=== PATIENT | female | born 1965 | race Caucasian/White ===

== ENCOUNTER 2022-09-02 14:46 | Outpatient (REF) | payer OTHER, SELFPAY ==
[2022-09-02 15:05] LABS: MANUAL DIFF FLAG NO
[2022-09-02 15:25] LABS: Basophils Absolute Auto 0.1 X10*3/uL (0.0-0.2); Basophils Percent Auto 1.4 % (0-2); Eosinophils Absolute Auto 0.1 X10*3/uL (0.0-0.4); Eosinophils Percent Auto 2.4 % (0-4); Hematocrit 39.7 % (37.0-47.0); Hemoglobin 13.5 g/dl (12.0-16.0); Imm Gran Abs Auto 0.01 X10*3/uL (0.00-0.03); Imm Gran Pct Auto 0.2 % (0.0-0.4); Lymphocytes Absolute Auto 1.2 X10*3/uL (1.2-4.9); Lymphocytes Percent Auto 21.4 % (20-40); Mean Corpuscular Hemoglobin 31.2 pg (27.0-33.0); Mean Corpuscular Volume 91.7 fL (80.0-98.0); Mean Platelet Volume 11.3 fL (9.4-12.3); Monocytes Absolute Auto 0.7 X10*3/uL (0.1-1.2); Neutrophils Absolute Auto 3.4 x10*3/uL (2.0-8.3); Neutrophils Percent Auto 61.6 % (45-73); Platelet Count 196 X10*3/uL (160-400); Red Blood Count 4.33 X10*6/uL (4.20-5.50); Red Cell Distribution Width 12.4 % (11.0-16.0); White Blood Count 5.5 X10*3/uL (4.8-10.8)
[2022-09-02 15:52] LABS: Alanine Aminotransferase 13 U/L (0-31); Albumin Level 4.2 g/dL (3.5-5.0); Alkaline Phosphatase 55 U/L (39-117); Anion Gap 13 (12-20); Aspartate Amino Transferase 13 U/L (5-31); Bilirubin Direct < 0.2 mg/dL (0.0-0.5); Bilirubin Total 0.5 mg/dL (0.0-1.0); Blood Urea Nitrogen 16 mg/dL (9-16); Calcium 9.3 mg/dL (8.4-10.2); Carbon Dioxide 24 mmol/L (22-29); Chloride 110 mmol/L (96-108); Cholesterol 227 mg/dL; Estimated Glomerular Filt Rate > 60; Glucose Random 92 mg/dL (60-115); HDL Cholesterol 71 mg/dL; LDL Cholesterol Calculated 143 mg/dl; Potassium 4.2 mmol/L (3.3-5.1); Sodium 143 mmol/L (135-145); Total Protein 6.7 g/dL (6.5-8.0); Triglycerides 66 mg/dL
[2022-09-04 07:43] LABS: LDL Cholesterol Direct 130 mg/dL (<100)
[2022-09-04 08:38] LABS: HBS Num1 26.24 mIU/mL (0-7.99); HBc Num1 0.21 S/CO (0.00-0.79); HBsAGNum1 0.38 S/CO (0.00-0.99); Hepatitis B Core Antibody Nonreactive (Nonreactive); Hepatitis B Surface Antigen Negative (Negative); ~Hepatitis B Surface Antibody REACTIVE (Nonreactive); ~Hepatitis C Antibody Nonreactive (Nonreactive)
[2022-09-04 23:29] LABS: TS Negative Control Passed; TS Panel A 0; TS Panel B 0; TS Positive Control Passed; TSpotTB Negative (Negative)
== END 2022-09-02 14:47 | disposition home or self-care (01) ==
LOC: HO.LAB 14:46
PROVIDERS: PCP Internal Medicine; Visit Provider Physician Assistant
DX: L40.0 Psoriasis vulgaris (principal)
CPT/HCPCS: 36415; 80048; 80061; 80076; 83721; 85025; 86481; 86704; 86706; 86803; 87340

== ENCOUNTER 2022-10-24 07:51 | Inpatient (IN) | payer OTHER, SELFPAY ==
[2022-10-24] VITALS (10 sets, daily range): BP systolic 109–153; BP diastolic 65–86; PULSE 77–124; RESP 16–24; TEMP 36.2–37.4; O2SAT 92–99; BMI 23.6
--- NOTE | ~2022-10-24 | CT_ITS ---
EXAMINATION: CT ABDOMEN AND PELVIS WITH CONTRAST CLINICAL INFORMATION: Right lower quadrant pain. Evaluate for acute appendicitis. COMPARISON: None available. TECHNIQUE: Multidetector volumetric images were obtained from the superior aspect of the liver through the pubic symphysis following administration 85 mL of Omnipaque 350 intravenous contrast. Sagittal and coronal reformatted images were obtained on the technologist's workstation. Oral contrast: No This CT examination was performed using dose optimization techniques as appropriate, variously including the following: *Automated exposure control *Adjustment of mA and/or kV according to patient size (this includes techniques or standardized protocols for targeted exams where dose is matched to indication/reason for exam; i.e. extremities or head) *Use of iterative reconstruction technique DLP: 536 mGy-cm FINDINGS: LUNG BASES: The visualized lung bases are unremarkable. LIVER, GALLBLADDER, AND BILIARY TREE: The liver is normal in size, shape, and attenuation. There are at least 2 tiny subcentimeter hepatic hypodensities, too small to characterize. No additional, enhancing focal hepatic lesion or biliary ductal dilatation is present. Prominent gallbladder distention with circumferential wall thickening and adjacent fat stranding, consistent with acute cholecystitis. There is a slightly dense ovoid structure within the anteromedial gallbladder measuring up to 2.4 cm, likely indicating cholelithiasis. PANCREAS: Unremarkable. SPLEEN: Unremarkable. ADRENAL GLANDS: Unremarkable. KIDNEYS AND URETERS: The kidneys are normal in size, shape, and attenuation. Simple left upper pole renal cyst measuring up to 1.0 cm. Additional renal hypodensities bilaterally, too small to characterize. Right lower pole 0.6 cm renal stone located approximately 8 cm from the posterior axillary line. No additional renal or ureteral stone. No hydronephrosis or hydroureter. BLADDER: Nondistended. GASTROINTESTINAL TRACT: Sigmoid diverticulosis without evidence of acute diverticulitis. No bowel wall thickening or inflammatory change. No small or large bowel obstruction. Unremarkable appendix. PERITONEAL CAVITY: Trace ascites. No organized fluid collection or abscess formation. No intra-abdominal free air. ABDOMINAL WALL: No significant hernia is appreciated. LYMPH NODES: No significant lymphadenopathy. VASCULAR: Unremarkable. PELVIC VISCERA: The uterus and adnexa are unremarkable. OSSEOUS STRUCTURES: Moderate right and mild left hip osteoarthritis. No acute osseous abnormality. CT/CT abdomen pelvis w IV con IMPRESSION: 1. Prominent gallbladder distention with circumferential wall thickening and adjacent fat stranding, consistent with acute cholecystitis. Probable cholelithiasis. No intrahepatic or extrahepatic biliary ductal dilatation. 2. Trace ascites. No organized fluid collection or abscess formation. 3. Diverticulosis without evidence of acute diverticulitis. No small or large bowel obstruction. Unremarkable appendix. 4. Right lower pole 0.6 cm renal stone. No additional renal or ureteral stone. No hydronephrosis or hydroureter. Fleischner guidelines were followed.
--- NOTE | 2022-10-24 08:27 | ED_ITS ---
HPI - Abdominal Pain General Chief Complaint: Abdominal Pain Stated Complaint: appendicitis? Time Seen by Provider: 10/24/22 08:02 Source: patient Mode of arrival: ambulatory Limitations: no limitations History of Present Illness HPI narrative: 57-year-old female with a history of tobacco smoking, anxiety, depression here with complaints of right lower quadrant abdominal pain for the last 3 days. Pain initially began around the umbilicus and has now migrated to the right side of the abdomen with associated nausea, vomiting and chills. No complaints of diarrhea, constipation, urinary symptoms No previous abdominal surgery history Related Data Home Medications Medication Instructions Recorded Confirmed apremilast 30 mg tablet (Otezla) See Rx Instructions .Route .COMPLEX 10/24/22 10/24/22 divalproex 500 mg tablet,delayed 500 mg PO QAM 10/24/22 10/24/22 release olanzapine 15 mg tablet 15 mg PO BEDTIME 10/24/22 10/24/22 roflumilast 0.3 % topical cream 1 appl topical DAILY 10/24/22 10/24/22 (Zoryve) Allergies Allergy/AdvReac Type Severity Reaction Status Date / Time Penicillins [PENICILLINS] Allergy Severe ANAPHYLAXIS Verified 10/24/22 08:09 Review of Systems Review of Systems Yes all other systems are reviewed and are negative Constitutional: Reports no additional constitutional complaints, Denies body ache(s), Reports chills, Denies fever(s), Denies headache(s) and Denies weakness Eyes: Reports no additional eye complaints and Denies change in vision Reports system reviewed and no additional complaints, except as documented, Denies dizziness, Denies headache(s), Denies nasal congestion, Denies nasal discharge and Denies neck pain Cardiovascular: Reports no additional cardiovascular complaints, Denies chest pain, Denies leg edema and Denies dyspnea Respiratory: Reports no additional respiratory complaints, Denies cough and Denies dyspnea Gastrointestinal: Reports no additional gastrointestinal complaints, Reports abdominal pain, Denies diarrhea, Reports nausea and Reports vomiting Genitourinary: Reports no additional female genitourinary complaints and Denies urinary incontinence Musculoskeletal: Reports no additional musculoskeletal complaints, Denies back pain, Denies arthralgias, Denies joint swelling, Denies neck pain, Denies numbness and Denies tingling Skin/Breast: Reports system reviewed and no additional complaints, except as docu and Denies rash Reports system reviewed and no additional complaints, except as documented, Denies dizziness, Denies headache(s), Denies numbness, Denies tingling and Denie s weakness [facility] Past Medical History Attestation statement: The following information was validated with the patient. Source: old records reviewed and nursing notes reviewed Medical History Acute cholecystitis Anxiety and depression Smoker Social History Social History Advance Directives: No Advance Directives Information Provided: No Physical Exam ED Vital Signs: Vital Signs - 24 hr 10/24/22 08:10 10/24/22 08:29 Temperature 98.3 F 98.4 F Pulse Rate 124 H 108 H Respiratory Rate 16 20 Blood Pressure 109/69 120/77 Pulse Oximetry 96 97 Oxygen Delivery Method Room Air Room Air BMI result Body Mass Index 23.6 Const General: cooperative, healthy appearing, comfortable and no acute distress Orientation/consciousness: patient oriented x3 Limitations: no limitations HENMT Head: Yes normal to inspection Ears: hearing grossly normal bilaterally Eyes General: appearance normal, both eyes and all related structures Pupils: Equal, round and reactive pupils present Neck Neck: Yes normal visual inspection Chest Chest palpation & inspection: normal inspection of the chest Resp Effort & Inspection: normal respiratory effort Auscultation: clear to auscultation bilaterally Cardio Rate: tachycardic Rhythm: regular rhythm Peripheral pulses: Peripheral pulses 2+ throughout GI Inspection: Yes normal to inspection Palpation (GI): Soft to palpation and Tenderness to palpation present (GI) in the RLQ and in the RUQ Auscultation: normal bowel sounds General: Yes no CVA tenderness Back/Spine/Pelvis Back: no CVA tenderness Thoracic/Lumbar Spine: thoracic and lumbar spine normal to inspection Skin General skin exam: no rashes or lesions noted Neuro General: patient oriented x3 and moves all extremities Cranial nerves: Yes Equal, round and reactive pupils present Cognition (Neuro): normal cognition Gait exam (Neuro): Normal gait present Extrem General: Yes normal to inspection, Yes no pedal edema and Yes no calf tenderness Course Course Course Narrative: 1040-CT shows acute cholecystitis. Patient with mildly elevated LFTs, leukocytosis. At this time infection suspected. Antibiotics ordered. I spoke to on-call surgeon who will come and see the patient. Medical Decision Making Medical Decision Making MDM Narrative: 57-year-old female with a history of tobacco smoking, anxiety, depression here with complaints of right lower quadrant abdominal pain for the last 3 days.? Pain initially began around the umbilicus and has now migrated to the right side of the abdomen with associated nausea, vomiting and chills.? No complaints of diarrhea, constipation, urinary symptoms No previous abdominal surgery history On exam TTP to right abdomen with no rebound or guarding +tachycardia on exam. Will obtain labs, UA, CT Differential Diagnosis Differential Diagnoses: The differential diagnosis associated with the presentation includes Acute appy, acute lul, divert, renal colic, pyelo Consult Healthcare Provider Management of the patient was discussed with: [employer] General surgery-Dr. Ingram (came down to con Lab Data [facility] Lab Attestation statement: I reviewed the patient's lab results. 10/24/22 08:40 10/24/22 08:40 Labs: Lab Results 10/24/22 10/24/22 10/24/22 Range/Units 08:40 08:40 08:40 WBC 18.3 H (4.8-10.8) X10*3/uL RBC 4.73 (4.20-5.50) X10*6/uL Hgb 14.8 (12.0-16.0) g/dl Hct 43.0 (37.0-47.0) % MCV 90.9 (80.0-98.0) fL MCH 31.3 (27.0-33.0) pg MCHC 34.4 (31.0-35.0) g/dl RDW 12.6 (11.0-16.0) % Plt Count 215 (160-400) X10*3/uL MPV 11.0 (9.4-12.3) fL Immature Gran % (Auto) 0.4 (0.0-0.4) % Neut % (Auto) 85.2 H (45-73) % Lymph % (Auto) 5.7 L (20-40) % [place] % (Auto) 8.2 (2-11) % Eos % (Auto) 0.1 (0-4) % Baso % (Auto) 0.4 (0-2) % Lymph # (Auto) 1.0 L (1.2-4.9) X10*3/uL [place] # (Auto) 1.5 H (0.1-1.2) X10*3/uL Eos # (Auto) 0.0 (0.0-0.4) X10*3/uL Baso # (Auto) 0.1 (0.0-0.2) X10*3/uL Abs Immat Gran (auto) 0.07 H (0.00-0.03) X10*3/uL Absolute Neuts (auto) 15.6 H (2.0-8.3) x10*3/uL Absolute Nucleated RBC 0.000 (0.0-0.012) X10*3/uL Nucleated RBC % (auto) 0.0 (0.0-0.2) /100WBC Sodium 139 (135-145) mmol/L Potassium 4.0 (3.3-5.1) mmol/L Chloride 105 (96-108) mmol/L Carbon Dioxide 24 (22-29) mmol/L Anion Gap 14 (12-20) BUN 16 (9-16) mg/dL Creatinine 0.84 (0.5-1.4) mg/dL Estim Creat Clear Calc 76.2 Estimated GFR > 60 Random Glucose 126 H (60-115) mg/dL Lactic Acid 1.3 (0.5-2.0) mmol/L Calcium 9.6 (8.4-10.2) mg/dL Total Bilirubin 2.1 H (0.0-1.0) mg/dL Direct Bilirubin 0.6 H (0.0-0.5) mg/dL AST 32 H (5-31) U/L ALT 35 H (0-31) U/L Alkaline Phosphatase 64 (39-117) U/L Total Protein 6.9 (6.5-8.0) g/dL Albumin 4.3 (3.5-5.0) g/dL Lipase 10 (8-78) U/L Independent Interpretation I performed an independent interpretation of an: CT Scan Interpretation: I independently reviewed the CT scan agree with radiologist's report Radiology Impression Discussion of test interpretation with radiology: I have reviewed the radiologist's reading. Radiologist Impression: FINDINGS: LUNG BASES: The visualized lung bases are unremarkable.? LIVER, GALLBLADDER, AND BILIARY TREE: The liver is normal in size, shape, and attenuation. There are at least 2 tiny subcentimeter hepatic hypodensities, too small to characterize. No additional, enhancing focal hepatic lesion or biliary ductal dilatation is present. Prominent gallbladder distention with circumferential wall thickening and adjacent fat stranding, consistent with acute cholecystitis. There is a slightly dense ovoid structure within the anteromedial gallbladder measuring up to 2.4 cm, likely indicating cholelithiasis.? PANCREAS: Unremarkable.? SPLEEN: Unremarkable.? ADRENAL GLANDS: Unremarkable.? KIDNEYS AND URETERS: The kidneys are normal in size, shape, and attenuation. Simple left upper pole renal cyst measuring up to 1.0 cm. Additional renal hypodensities bilaterally, too small to characterize. Right lower pole 0.6 cm renal stone located approximately 8 cm from the posterior axillary line. No additional renal or ureteral stone. No hydronephrosis or hydroureter. BLADDER: Nondistended.? GASTROINTESTINAL TRACT: Sigmoid diverticulosis without evidence of acute diverticulitis. No bowel wall thickening or inflammatory change. No small or large bowel obstruction. Unremarkable appendix. PERITONEAL CAVITY: Trace ascites. No organized fluid collection or abscess formation. No intra-abdominal free air.? ABDOMINAL WALL: No significant hernia is appreciated.? LYMPH NODES: No significant lymphadenopathy. VASCULAR: Unremarkable. PELVIC VISCERA: The uterus and adnexa are unremarkable.? OSSEOUS STRUCTURES: Moderate right and mild left hip osteoarthritis. No acute osseous abnormality.? CT/CT abdomen pelvis w IV con IMPRESSION: 1.? Prominent gallbladder distention with circumferential wall thickening and adjacent fat stranding, consistent with acute cholecystitis. Probable cholelithiasis. No intrahepatic or extrahepatic biliary ductal dilatation. ? 2.? Trace ascites. No organized fluid collection or abscess formation. ? 3.? Diverticulosis without evidence of acute diverticulitis. No small or large bowel obstruction. Unremarkable appendix. ? 4.? Right lower pole 0.6 cm renal stone. No additional renal or ureteral stone. No hydronephrosis or hydroureter. ? Fleischner guidelines were followed. Medications Administered Discontinued Medications Generic Name Dose Route Start Last Admin Trade Name Freq PRN Reason Stop Dose Admin Hydromorphone HCl 0.5 mg 10/24/22 10:02 10/24/22 10:10 Hydromorphone Hcl 0.5 Mg/0.5 Ml Syringe IVPUSH 10/24/22 10:03 0.5 mg ONCE ONE Administration Protocol Sodium Chloride 1,000 mls @ 999 mls/hr 10/24/22 08:32 10/24/22 11:19 Ns IV 10/24/22 09:32 Infused .Q1H1M STA Infusion Levofloxacin 500 mg in 100 mls @ 100 mls/hr 10/24/22 10:41 10/24/22 11:19 Levaquin IV 10/24/22 11:40 100 mls/hr ONCE ONE Administration Iohexol 100 ml 10/24/22 09:27 10/24/22 09:27 Iohexol 350 Mg/Ml 100 Ml Infus..Btl IV 10/24/22 09:28 85 ml ONCE ONE Administration Morphine Sulfate 4 mg 10/24/22 08:32 10/24/22 08:47 Morphine Sulfate 4 Mg/Ml Cartridge IVPUSH 10/24/22 08:33 4 mg ONCE ONE Administration Protocol Ondansetron HCl 4 mg 10/24/22 08:32 10/24/22 08:47 Ondansetron Hcl 4 Mg/2 Ml Vial IVPUSH 10/24/22 08:33 4 mg ONCE ONE Administration Discharge Plan Discharge Clinical Impression: Cholecystitis Patient Disposition: Admitted As Inpatient
[2022-10-24] MEDS: ondansetron HCL 4 MG/2 ML VIAL IVPUSH (08:47)
[2022-10-24] MEDS: Morphine Sulfate 4 MG/ML CARTRIDGE IVPUSH (08:47)
[2022-10-24] MEDS: 0.9 % Sodium Chloride 1,000 ML 999 ML IV (08:47)
[2022-10-24 08:50] LABS: MANUAL DIFF FLAG NO
[2022-10-24 09:01] LABS: Basophils Absolute Auto 0.1 X10*3/uL (0.0-0.2); Basophils Percent Auto 0.4 % (0-2); Eosinophils Percent Auto 0.1 % (0-4); Hemoglobin 14.8 g/dl (12.0-16.0); Imm Gran Abs Auto 0.07 X10*3/uL (0.00-0.03); Imm Gran Pct Auto 0.4 % (0.0-0.4); Lymphocytes Percent Auto 5.7 % (20-40); Mean Corpuscular HGB Conc 34.4 g/dl (31.0-35.0); Mean Corpuscular Hemoglobin 31.3 pg (27.0-33.0); Mean Corpuscular Volume 90.9 fL (80.0-98.0); Monocytes Absolute Auto 1.5 X10*3/uL (0.1-1.2); Monocytes Percent Auto 8.2 % (2-11); Neutrophils Absolute Auto 15.6 x10*3/uL (2.0-8.3); Neutrophils Percent Auto 85.2 % (45-73); Platelet Count 215 X10*3/uL (160-400); Red Blood Count 4.73 X10*6/uL (4.20-5.50); Red Cell Distribution Width 12.6 % (11.0-16.0); White Blood Count 18.3 X10*3/uL (4.8-10.8)
[2022-10-24 09:11] LABS: Alanine Aminotransferase 35 U/L (0-31); Albumin Level 4.3 g/dL (3.5-5.0); Alkaline Phosphatase 64 U/L (39-117); Anion Gap 14 (12-20); Aspartate Amino Transferase 32 U/L (5-31); Bilirubin Direct 0.6 mg/dL (0.0-0.5); Bilirubin Total 2.1 mg/dL (0.0-1.0); Blood Urea Nitrogen 16 mg/dL (9-16); Calcium 9.6 mg/dL (8.4-10.2); Carbon Dioxide 24 mmol/L (22-29); Chloride 105 mmol/L (96-108); Creatinine Clr Calc Pharmacy 76.2; Estimated Glomerular Filt Rate > 60; Glucose Random 126 mg/dL (60-115); Lipase 10 U/L (8-78); Sodium 139 mmol/L (135-145); Total Protein 6.9 g/dL (6.5-8.0)
[2022-10-24 09:19] LABS: Lactic Acid 1.3 mmol/L (0.5-2.0)
[2022-10-24] MEDS: iohexoL 350 MG/ML 100 ML INFUS..BTL IV (09:27)
[2022-10-24] MEDS: HYDROmorphone HCl 0.5 MG/0.5 ML SYRINGE IVPUSH (10:10)
--- NOTE | 2022-10-24 10:16 | PC.NURSE ---
abd pain worse post morphine admin, given IVP dilaudid. will CTM
--- NOTE | 2022-10-24 10:57 | P.HPGS_ITS ---
History of Present Illness History of Present Illness Date of Service: 10/30/22 Chief complaint: Acute cholecystitis Narrative: Latasha Valdes is a 57 year old female who came to the ER this morning because of right upper quadrant pain. She says that she has had this for about days now . She denies vomiting but does have some nausea. She says that the pain had been persistent. This had been constant as well. She denies any fever but says she may have had some chills yesterday. Aside from significant smoking history and anxiety/ depression, She says she is relatively healthy. She says she continues to have pain at this time and has been asking for pain medications in the ED. Review of Systems Constitutional: Constitutional: Reports chills and Denies fever(s) Cardiovascular: Cardiovascular: Denies chest pain, Denies dyspnea and Denies dyspnea on exertion Respiratory: Respiratory: Denies cough, Denies dyspnea and Denies dyspnea on exertion Gastrointestinal: Gastrointestinal: Denies hematochezia and Denies change in bowel habits Genitourinary: Genitourinary: Denies hematuria Musculoskeletal: Musculoskeletal: Denies back pain and Denies limited range of motion Neurologic: Denies focal weakness and Denies convulsions Psychiatric: Psychiatric: Reports anxiety, Reports depression and Denies mood swings PMFSH Past Medical History Medical History Acute cholecystitis Anxiety and depression Smoker Surgical History Surgical History (Updated 10/30/22 @ 11:02 by NAM Esteves) History of laparoscopic cholecystectomy (~10/24/22) Social History Social History Household Members: Spouse Housing: House Do you presently have visiting nurse or other home services: No Patient Tobacco Use Status: Current everyday Tobacco user Tobacco use type: Cigarette e-Cigarette/Vaping Use: Never Used Second Hand Smoke Exposure: Yes Substance Use Type: Caffiene service: No Current occupational status: employed Meds Allergies Allergy/AdvReac Type Severity Reaction Status Date / Time Penicillins [PENICILLINS] Allergy Severe ANAPHYLAXIS Verified 10/24/22 08:09 Active Medications: Current Medications Levofloxacin (Levaquin) 500 mg in 100 mls @ 100 mls/hr IV ONCE ONE Stop: 10/24/22 11:40 Metronidazole (Flagyl) 500 mg in 100 mls @ 100 mls/hr IV ONCE ONE Stop: 10/24/22 11:40 Home Medications Medication Instructions Recorded Confirmed Last Taken Type apremilast 30 mg tablet (Otezla) See Rx Instructions .Route .COMPLEX 10/24/22 10/24/22 Unknown History divalproex 500 mg tablet,delayed 500 mg PO QAM 10/24/22 10/24/22 Unknown History release olanzapine 15 mg tablet 15 mg PO BEDTIME 10/24/22 10/24/22 Unknown History roflumilast 0.3 % topical cream 1 appl topical DAILY 10/24/22 10/24/22 Unknown History (Zoryve) Physical Exam Vital Signs: Vital Signs: Last Vital Signs Temp 98.4 F 10/24/22 08:29 Pulse 108 H 10/24/22 08:29 Resp 20 10/24/22 08:29 BP 120/77 10/24/22 08:29 Pulse Ox 97 10/24/22 08:29 O2 Del Method Room Air 10/24/22 08:29 BMI result Body Mass Index 23.6 Const: General: comfortable and no acute distress Orientation/consciousness: patient oriented x3 Eyes: Other: not icteric Neck: Neck: Yes no lymphadenopathy Resp: Auscultation: clear to auscultation bilaterally Cardio: Rhythm: regular rhythm GI: Other: tender on the right upper quadrant Palpation (GI): Soft to palpation, Tenderness to palpation present (GI) and no guarding Neuro: General: patient oriented x3 Results Results Labs: Short CBC 10/24/22 Range/Units 08:40 WBC 18.3 H (4.8-10.8) X10*3/uL Hgb 14.8 (12.0-16.0) g/dl Hct 43.0 (37.0-47.0) % Plt Count 215 (160-400) X10*3/uL BMP 10/24/22 08:40 Sodium 139 Potassium 4.0 Chloride 105 Carbon Dioxide 24 BUN 16 Creatinine 0.84 Calcium 9.6 Liver Function 10/24/22 Range/Units 08:40 Total Bilirubin 2.1 H (0.0-1.0) mg/dL Direct Bilirubin 0.6 H (0.0-0.5) mg/dL AST 32 H (5-31) U/L ALT 35 H (0-31) U/L Alkaline Phosphatase 64 (39-117) U/L Albumin 4.3 (3.5-5.0) g/dL Laboratory Results WBC 18.3 X10*3/uL (4.8-10.8) H 10/24/22 08:40 RBC 4.73 X10*6/uL (4.20-5.50) 10/24/22 08:40 Hgb 14.8 g/dl (12.0-16.0) 10/24/22 08:40 Hct 43.0 % (37.0-47.0) 10/24/22 08:40 MCV 90.9 fL (80.0-98.0) 10/24/22 08:40 MCH 31.3 pg (27.0-33.0) 10/24/22 08:40 MCHC 34.4 g/dl (31.0-35.0) 10/24/22 08:40 RDW 12.6 % (11.0-16.0) 10/24/22 08:40 Plt Count 215 X10*3/uL (160-400) 10/24/22 08:40 MPV 11.0 fL (9.4-12.3) 10/24/22 08:40 Immature Gran % (Auto) 0.4 % (0.0-0.4) 10/24/22 08:40 Neut % (Auto) 85.2 % (45-73) H 10/24/22 08:40 Lymph % (Auto) 5.7 % (20-40) L 10/24/22 08:40 [place] % (Auto) 8.2 % (2-11) 10/24/22 08:40 Eos % (Auto) 0.1 % (0-4) 10/24/22 08:40 Baso % (Auto) 0.4 % (0-2) 10/24/22 08:40 Lymph # (Auto) 1.0 X10*3/uL (1.2-4.9) L 10/24/22 08:40 [place] # (Auto) 1.5 X10*3/uL (0.1-1.2) H 10/24/22 08:40 Eos # (Auto) 0.0 X10*3/uL (0.0-0.4) 10/24/22 08:40 Baso # (Auto) 0.1 X10*3/uL (0.0-0.2) 10/24/22 08:40 Abs Immat Gran (auto) 0.07 X10*3/uL (0.00-0.03) H 10/24/22 08:40 Absolute Neuts (auto) 15.6 x10*3/uL (2.0-8.3) H 10/24/22 08:40 Absolute Nucleated RBC 0.000 X10*3/uL (0.0-0.012) 10/24/22 08:40 Nucleated RBC % (auto) 0.0 /100WBC (0.0-0.2) 10/24/22 08:40 Sodium 139 mmol/L (135-145) 10/24/22 08:40 Potassium 4.0 mmol/L (3.3-5.1) 10/24/22 08:40 Chloride 105 mmol/L (96-108) 10/24/22 08:40 Carbon Dioxide 24 mmol/L (22-29) 10/24/22 08:40 Anion Gap 14 (12-20) 10/24/22 08:40 BUN 16 mg/dL (9-16) 10/24/22 08:40 Creatinine 0.84 mg/dL (0.5-1.4) 10/24/22 08:40 Estim Creat Clear Calc 76.2 10/24/22 08:40 Estimated GFR > 60 10/24/22 08:40 Random Glucose 126 mg/dL (60-115) H 10/24/22 08:40 Lactic Acid 1.3 mmol/L (0.5-2.0) 10/24/22 08:40 Calcium 9.6 mg/dL (8.4-10.2) 10/24/22 08:40 Total Bilirubin 2.1 mg/dL (0.0-1.0) H 10/24/22 08:40 Direct Bilirubin 0.6 mg/dL (0.0-0.5) H 10/24/22 08:40 AST 32 U/L (5-31) H 10/24/22 08:40 ALT 35 U/L (0-31) H 10/24/22 08:40 Alkaline Phosphatase 64 U/L (39-117) 10/24/22 08:40 Total Protein 6.9 g/dL (6.5-8.0) 10/24/22 08:40 Albumin 4.3 g/dL (3.5-5.0) 10/24/22 08:40 Lipase 10 U/L (8-78) 10/24/22 08:40 Impressions Abdomen/Pelvis CT 10/24/22 09:33 IMPRESSION: 1. Prominent gallbladder distention with circumferential wall thickening and adjacent fat stranding, consistent with acute cholecystitis. Probable cholelithiasis. No intrahepatic or extrahepatic biliary ductal dilatation. 2. Trace ascites. No organized fluid collection or abscess formation. 3. Diverticulosis without evidence of acute diverticulitis. No small or large bowel obstruction. Unremarkable appendix. 4. Right lower pole 0.6 cm renal stone. No additional renal or ureteral stone. No hydronephrosis or hydroureter. Fleischner guidelines were followed. Assessment and Plan (1) Acute cholecystitis: Status: Acute She has had right upper quadrant pain and tenderness. I have reviewed her CAT scan and this shows significant gallbladder wall edema with the stone, consistent with calculous cholecystitis. Therefore explained to the patient the option of proceeding with laparoscopic cholecystectomy. I discussed with her the technique of this procedure. I reviewed the risks including but not limited to bleeding, infections, injury to other organs including bowel, liver and bile duct, bile leak, retained stones, as well as the benefits and alternatives. I explained to her the option of IV antibiotic treatment She says that she wants to proceed in view of her persistent pain. We will therefore proceed with laparoscopic cholecystectomy, possible open cholecystectomy. She seems to understand the plan well and is comfortable with this. Time Spent With Patient Time: Total time managing care of this patient today ____ minutes. Quality Stroke Does the patient have a stroke diagnosis?: No VTE Prior VTE?: No VTE Risk Level:: Medical - moderate - high VTE Device Contraindication: N/A - Device Ordered VTE Drug Contraindication: N/A - Med Ordered Procedures Date of Service Date of Service: 10/30/22
[2022-10-24] MEDS: levoFLOXacin/D5W 500 MG/100 ML PIGGYBACK 100 MG IV (11:19)
--- NOTE | 2022-10-24 12:05 | PHA.MEDREC ---
Pharmacy Consult ? Medication Reconciliation Pharmacy has completed the medication reconciliation. PATIENT WILL BE BRINING IN HER OTEZLA
[2022-10-24] MEDS: metroNIDAZOLE/NS 500 MG/100 ML PIGGYBACK 100 MG IV ×2 (12:35→19:29)
--- NOTE | 2022-10-24 13:31 | P.CONAN_ITS ---
[facility] Active Problems Active Problems: All Active Problems (Updated 10/24/22 @ 11:00 by Marquis Ingram MD) Acute cholecystitis (Acute) Anxiety and depression (Acute) Smoker (Acute) Cholecystitis (Acute) Past Medical History Medical History Acute cholecystitis Anxiety and depression Smoker Family History Family history of problems with anesthesia: No Surgical History History of Problems with Anesthesia: No Social History Social History Advance Directives: No Advance Directives Information Provided: No Meds Allergies Allergy/AdvReac Type Severity Reaction Status Date / Time Penicillins [PENICILLINS] Allergy Severe ANAPHYLAXIS Verified 10/24/22 08:09 Active Medications: Current Medications Fentanyl (Fentanyl Citrate/Pf 100 Mcg/2 Ml Vial) 50 mcg IVPUSH Q5M PRN; Protocol PRN Reason: Pain, Severe (Pain Scale 7-10) Heparin Sodium (Porcine) (Heparin Sodium,Porcine 5,000 Unit/Ml Vial) 5,000 unit SUBCUT Q8H DAVID Ondansetron HCl (Ondansetron Hcl 4 Mg/2 Ml Vial) 4 mg IVPUSH ONCE PRN PRN Reason: Nausea and Vomiting Oxycodone HCl (Oxycodone Hcl Immed Release 5 Mg Tablet) 5 mg PO ONCE PRN PRN Reason: Pain, Severe (Pain Scale 7-10) Sodium Chloride (0.9 % Sodium Chloride Flush 3 Ml Syringe) [facility] Medic[facility] Medication Instructions Recorded Confirmed Last Taken Type apremilast 30 mg tablet (Otezla) See Rx Instructions .Route .COMPLEX 10/24/22 10/24/22 Unknown History divalproex 500 mg tablet,delayed 500 mg PO QAM 10/24/22 10/24/22 Unknown History release olanzapine 15 mg tablet 15 mg PO BEDTIME 10/24/22 10/24/22 Unknown History roflumilast 0.3 % topical cream 1 appl topical DAILY 10/24/22 10/24/22 Unknown History (Zoryve) Exam Exam Date and Time: October 24, 2022 1331 Height,Weight and Vital Signs: Height 5 ft 9 in Weight 72.575 kg Last Vital Signs Temp 98.4 F 10/24/22 08:29 Pulse 108 H 10/24/22 08:29 Resp 20 10/24/22 08:29 BP 120/77 10/24/22 08:29 Pulse Ox 97 10/24/22 08:29 O2 Del Method Room Air 10/24/22 08:29 Pertinent Lab Results Pertinent Lab Results: Laboratory Tests 10/24/22 10/24/22 10/24/22 08:40 08:40 08:40 WBC 18.3 H RBC 4.73 Hgb 14.8 Hct 43.0 MCV 90.9 MCH 31.3 MCHC 34.4 RDW 12.6 Plt Count 215 MPV 11.0 Immature Gran % (Auto) 0.4 Neut % (Auto) 85.2 H Lymph % (Auto) 5.7 L [place] % (Auto) 8.2 Eos % (Auto) 0.1 Baso % (Auto) 0.4 Lymph # (Auto) 1.0 L [place] # (Auto) 1.5 H Eos # (Auto) 0.0 Baso # (Auto) 0.1 Abs Immat Gran (auto) 0.07 H Absolute Neuts (auto) 15.6 H Absolute Nucleated RBC 0.000 Nucleated RBC % (auto) 0.0 Sodium 139 Potassium 4.0 Chloride 105 Carbon Dioxide 24 Anion Gap 14 BUN 16 Creatinine 0.84 Estim Creat Clear Calc 76.2 Estimated GFR > 60 Random Glucose 126 H Lactic Acid 1.3 Calcium 9.6 Total Bilirubin 2.1 H Direct Bilirubin 0.6 H AST 32 H ALT 35 H Alkaline Phosphatase 64 Total Protein 6.9 Albumin 4.3 Lipase 10 Airway Mallampati Class: II TM Dist: >3cm Neck ROM: Full Denture: Upper and Lower Assessment and Plan Assessment Anesthesia Assessment: Anesthesia Plan Discussed, Smoking Cess. Discussed and Chart Reviewed Final Anesthetic Review Family History of Problems with Anesthesia: No History of Problems with Anesthesia: No NPO: Yes ASA Class: II and Emergency Final Preanesthetic Review: No Changes in Pt Med Stat, Meds/Allgs Chart Reviewed, Consent Obtained/Reviewed and Anes Risks/Benef Reviewed Patient Risk: Intermediate Procedure Risk: Intermediate Anesthetic Plan Anesthetic Plan: GA Disposition: Standard PACU
--- NOTE | 2022-10-24 13:52 | P.OP_ITS ---
Operative Note Operative Note Date of Service: 10/24/22 Narrative: Preop diagnosis: Acute cholecystitis Postop diagnosis: Acute gangrenous cholecystitis, with pus and suppuration Supraumbilical hernia Procedure: Laparoscopic cholecystectomy, repair of supraumbilical hernia Surgeon: Marquis Ingram MD The patient is a 57-year-old female who was seen in the ER because of right upper quadrant pain with acute cholecystitis clinically as well as on CT scan. Her white count was 18. She was very tender. She understood the technique of laparoscopic cholecystectomy. She was aware of the risks, benefits, and alternatives. She was brought to the operating room placed supine under general anesthesia via endotracheal tube. The abdomen was prepped and draped in the usual sterile fashion. A surgical time-out was done. The patient received Levaquin and Flagyl I made a short incision on the supraumbilical margin using blade 15. this was carried down through the full-thickness of the skin and subcutaneous fat down to the fascia. we then this a containing supraumbilical hernia. We dissected this not to the fascial defect. With blunt dissection, this was freed around the margins of the fascia and was able to reduce gets completely. With th erefore used this as our port site. I was able to bluntly dissect the edges of the hernia to make sure that there were no adhesions. I used this as the access for our Lyle port. I then insufflated to pressure 50 minutes hg. I inserted a 5/12 mm laparoscope. With laparoscopic visualization I placed a 5/12 mm port in the epigastric area below the subcostal margin. Two 5 mm ports were int roduced a small incisions below the subcostal margin along the anterior axillary in the midclavicular line. Graspers were placed to this working ports. The patient was placed in head-up and [id number] position. The gallbladder was then seen. There was very distended, indurated and very erythematous. This was covered in omentum on the anterior wall as well. I therefore had to aspirate this 1st with an aspirating needle to decompress this. Hydropic fluid and purulent fluid was aspirated from the gallbladder. When the gallbladder had been Rowan decompressed, I was able to apply grasper towards the fundus and this was used to retract the gallbladder cephalad. we then proceeded to carefully separate the omentum off of the anterior wall using blunt dissection with the [place] dissector. Eventually is able to expose the entire anterior wall and I was able to apply a grasper towards the pouch. This was used to retract the gallbladder laterally. At this point the gallbladder was being retracted in a cephalad and lateral fashion to the area of the cystic duct on stretch. There was note of a lot of indurated fat air all tissue at the neck and we had to do a lot more dissection using combination of the [place] dissector as well as the tip of the jung catheter. Eventually, as able to visualize the cystic duct. I was able to achieve a critical view of the pannus expect triangle. The confluence of the cystic duct with the neck of the gallbladder was clearly seen. There were no other tubular structures adjacent to this except for what appeared to be a small cystic artery surrounded by indurated GI roll tissue. I therefore applied clips on the cystic duct, with 2 clips being applied distally. The cystic duct was transected between clips with Endo scissors. I bluntly dissected the cystic artery and applied clips. This was dissected with clips with Endo scissors as well. With traction on the gallbladder away from the liver bed, proceeded to then divide through the hilum with electrocautery spatula till was able to identify the interface of the gallbladder wall and the liver bed. I used the electrocautery spatula to incise the thickened, very edematous peritoneum of the gallbladder wall. I proceeded to gently define a plane of dissection between the gallbladder wall and liver bed along this plane. The planes were difficult in view of the severe edema, and induration of the gallbladder wall. There was note of pus as well draining from the stairs in the gallbladder wall from retraction. Furthermore, there was note of some gangrenous areas of the gallbladder wall itself I continued to separate the gallbladder from the liver bed along this poorly defined plane way to the fundus and the done there gallbladder was completely from the liver bed. The gallbladder was retrieved through an endobag through the umbilical incision. I reinserted all ports and re-insufflated. I copies irrigated. I suctioned undergone fluid. There was note of good hemostasis. There was no evidence of any bile leak or any bowel injury. I observed all 4 quadrants as well and there was no other pathology There was note of purulence so I positioned a JESSICA drain in the subhepatic space. This brought out through the lateral-most port site. This was secured to skin with nylon 3-0 sutures. I reexamined laparoscopically. Once hemostasis was confirmed, proceeded to then desufflate the port sites. I removed all ports under vision with the laparoscope. The umbilical port was removed last. The fascia of the supraumbilical hernia was closed with [id number] Dexon 0 stitch. Skin closure was achieved on all other skin incision using Kahn of 4-0 subcuticular running sutures. Steri-Strips and dressings were applied. The procedure was completed The patient tolerated procedure well. There were no immediate complications. Initial final counts of sponges and instruments were correct. Estimated blood loss about 75 cc. The patient was extubated without difficulty and transferred to the recovery room with stable vital signs.
[2022-10-24] MEDS: Acetaminophen 1,000 MG/100 ML PIGGYBACK 400 MG IV (14:09)
[2022-10-24] MEDS: Morphine Sulfate 2 MG/ML CARTRIDGE IVPUSH ×2 (15:12→19:28)
--- NOTE | 2022-10-24 15:20 | PM.EVENT ---
Event Note Date of Service: 10/24/22 Event Note: seen postop underwent lap lul earlier - GB gangrenous, markedly inflamed she has good pain control looks well wide awake abd soft JESSICA drain scanty serosanguinous output pain mgt updated Time Spent With Patient Time: Total time managing care of this patient today ____ minutes.
[2022-10-24] MEDS: Lactated Ringers 500 ML 80 ML IV (15:28)
[2022-10-24] MEDS: 0.9 % Sodium Chloride Flush 3 ML SYRINGE IVFLUSH (15:29)
[2022-10-24] MEDS: oxyCODONE HCl Immed Release 5 MG TABLET 10 MG PO (17:27)
[2022-10-25] MEDS: oxyCODONE HCl Immed Release 5 MG TABLET 10 MG PO ×4 (00:13→22:11)
[2022-10-25 01:39] LABS: Appearance Urine Cloudy; Color Urine Dark Yellow; Glucose Urine UA Negative (Negative); Leukocyte Esterase Urine Small (1+) (Negative); Nitrite Urine Negative (Negative); Specific Gravity - Urine 1.025 (1.005-1.025); UMIC TRIGGER UACC YES; Urine Blood Negative (Negative); Urine Ketones Negative (Negative); Urine Protein Trace mg/dL (Neg-Trace)
[2022-10-25 01:54] LABS: Bacteria Urine 1+ (None Seen); Hyaline Casts Urine 0-2 /LPF (0-2); UACC Culture Trigger YES; WBC Urine 0-5 /HPF (0-5)
[2022-10-25 04:00] VITALS: BP 133/69; PULSE 93; RESP 16; TEMP 37.5; O2SAT 92
[2022-10-25] MEDS: metroNIDAZOLE/NS 500 MG/100 ML PIGGYBACK 100 MG IV ×3 (04:15→19:21)
[2022-10-25 07:14] VITALS: BP 110/58; PULSE 92; RESP 18; TEMP 36.8; O2SAT 90
[2022-10-25] MEDS: 0.9 % Sodium Chloride Flush 3 ML SYRINGE IVFLUSH ×2 (08:42→16:15)
[2022-10-25] MEDS: Heparin Sodium,Porcine 5,000 UNIT/ML VIAL 5000 UNIT SUBCUT ×2 (08:42→17:52)
[2022-10-25] MEDS: Morphine Sulfate 2 MG/ML CARTRIDGE IVPUSH ×3 (08:42→19:28)
--- NOTE | 2022-10-25 10:04 | PM.PNGS ---
Subjective Subjective Date of Service: 10/25/22 Interval history: sore on incisions otherwise says she says she is feeling well hungry and wants to eat denies nausea or vomiting Physical Exam Vital Signs: Vital Signs: Last Vital Signs Temp 98.3 F 10/25/22 07:14 Pulse 92 10/25/22 07:14 Resp 18 10/25/22 07:14 BP 110/58 L 10/25/22 07:14 Pulse Ox 90 L 10/25/22 07:14 O2 Del Method Room Air 10/25/22 07:14 O2 Flow Rate 2 10/24/22 14:23 BMI result Body Mass Index 23.6 Const: General: comfortable and no acute distress Resp: Effort & Inspection: normal respiratory effort Cardio: Rate: regular rate GI: Other: JESSICA drain with scanty sanguinous drainage, tender on incisions, appropriate to postop status, dressings dry Palpation (GI): Soft to palpation, not firm and no guarding Objective Data Active Medications Fentanyl (Fentanyl Citrate/Pf 100 Mcg/2 Ml Vial) 50 mcg IVPUSH Q5M PRN; Protocol PRN Reason: Pain, Severe (Pain Scale 7-10) Heparin Sodium (Porcine) (Heparin Sodium,Porcine 5,000 Unit/Ml Vial) 5,000 unit SUBCUT Q8H [facility] Last Admin: 10/25/22 08:42 Dose: 5,000 unit Documented By: BARBARA Levofloxacin (Levaquin) 500 mg in 100 mls @ 100 mls/hr IV Q24H [facility] Metronidazole (Flagyl) 500 mg in 100 mls @ 100 mls/hr IV Q8H [facility] Last Infusion: 10/25/22 05:24 Dose: 0 mls/hr Documented By: KATHERINE Morphine Sulfate (Morphine Sulfate 2 Mg/Ml Cartridge) 2 mg IVPUSH Q3H PRN; Protocol PRN Reason: Pain, Moderate(Pain Scale 4-6) Last Admin: 10/25/22 08:42 Dose: 2 mg Documented By: BARBARA Ondansetron HCl (Ondansetron Hcl 4 Mg/2 Ml Vial) 4 mg IVPUSH ONCE PRN PRN Reason: Nausea and Vomiting Ondansetron HCl (Ondansetron Hcl 4 Mg/2 Ml Vial) 4 mg IVPUSH Q8H PRN PRN Reason: Nausea Oxycodone HCl (Oxycodone Hcl Immed Release 5 Mg Tablet) 5 mg PO ONCE PRN PRN Reason: Pain, Severe (Pain Scale 7-10) Oxycodone HCl (Oxycodone Hcl Immed Release 5 Mg Tablet) 10 mg PO Q4H PRN PRN Reason: Pain, Moderate(Pain Scale 4-6) Last Admin: 10/25/22 06:06 Dose: 10 mg Documented By: KATHERINE Oxycodone HCl (Oxycodone Hcl Immed Release 5 Mg Tablet) 5 mg PO Q4H PRN PRN Reason: Pain, Mild (Pain Scale 1-3) Sodium Chloride (0.9 % Sodium Chloride Flush 3 Ml Syringe) 3 ml IVFLUSH [facility] Last Admin: 10/25/22 08:42 Dose: 3 ml Documented By: BARBARA Labs 10/24/22 08:40 10/24/22 08:40 Labs: Laboratory Results - last 24 hr 10/25/22 01:20 Urine Color Dark Yellow Urine Appearance Cloudy Urine pH 6.0 Ur Specific [place] 1.025 Urine Protein Trace Urine Glucose (UA) Negative Urine Ketones Negative Urine Blood Negative Urine Nitrite Negative Ur Leukocyte Esterase Small (1+) H Urine RBC 3-5 H Urine WBC 0-5 Ur Squamous Epith Cells 11-20 Urine Bacteria 1+ Hyaline Casts 0-2 Procedures Date of Service Date of Service: 10/25/22 Progress Note: A&P Assessment and plan (1) Acute cholecystitis: Status: Acute Assessment and Plan: status post lap cholecystectomy appears to be doing well postop diet as tolerated clinically looks well Will keep for another day of IV antibiotics in view of purulent gallbladder contents likely to remove JESSICA drain prior to discharge overall appears to be doing well Time Spent With Patient Time: Total time managing care of this patient today ____ minutes. Quality Stroke Does the patient have a stroke diagnosis?: No VTE Prior VTE?: No VTE Risk Level:: Medical - moderate - high VTE Device Contraindication: N/A - Device Ordered VTE Drug Contraindication: N/A - Med Ordered
[2022-10-25] MEDS: levoFLOXacin/D5W 500 MG/100 ML PIGGYBACK 100 MG IV (10:41)
--- NOTE | 2022-10-25 11:39 | MHC.CM.PN ---
PT REPORTS SHE LIVES WITH HER PT IS INDEPENDENT WITH CARE AND WORKS SHE HAS NO DME AND NO SERVICES PT IS COVID [facility] SHE HAS A HCP, COPY REQUESTED PCP: TONIA SEGURA DCP: HOME NO SERVICES TO TRANSPORT
[2022-10-25 15:21] VITALS: BP 124/69; PULSE 91; RESP 18; TEMP 36.8; O2SAT 100
[2022-10-25] MEDS: oxyCODONE HCl Immed Release 5 MG TABLET PO (17:52)
[2022-10-25 19:34] VITALS: BP 119/56; PULSE 94; RESP 17; TEMP 36.3; O2SAT 92
[2022-10-26] MEDS: 0.9 % Sodium Chloride Flush 3 ML SYRINGE IVFLUSH ×2 (01:39→07:44)
[2022-10-26] MEDS: Heparin Sodium,Porcine 5,000 UNIT/ML VIAL 5000 UNIT SUBCUT ×2 (01:39→10:13)
[2022-10-26] MEDS: oxyCODONE HCl Immed Release 5 MG TABLET 10 MG PO ×3 (02:43→11:27)
[2022-10-26] MEDS: metroNIDAZOLE/NS 500 MG/100 ML PIGGYBACK 100 MG IV ×2 (03:43→11:27)
[2022-10-26 04:00] VITALS: BP 152/76; PULSE 99; RESP 18; TEMP 36.8; O2SAT 94
[2022-10-26 07:22] VITALS: BP 148/65; PULSE 90; RESP 18; TEMP 36.7; O2SAT 94
--- NOTE | 2022-10-26 08:38 | PM.PNGS ---
Subjective Subjective Date of Service: 10/26/22 <Janell Schaefer PA-C - Last Filed: 10/26/22 08:41> 10/26/22 <Marquis Ingram MD - Last Filed: 10/26/22 12:27> Interval history: Feels well this morning. Has incisional pain but tolerable. Ambulating the halls. Tolerating solid diet. <Janell Schaefer PA-C - Last Filed: 10/26/22 08:41> Physical Exam Vital Signs: Vital Signs: Last Vital Signs Temp 98.1 F 10/26/22 07:22 Pulse 90 10/26/22 07:22 Resp 18 10/26/22 07:22 BP 148/65 H 10/26/22 07:22 Pulse Ox 94 10/26/22 07:22 O2 Del Method Room Air 10/26/22 07:22 O2 Flow Rate 2 10/24/22 14:23 BMI result Body Mass Index 23.6 <Janell Schaefer PA-C - Last Filed: 10/26/22 08:41> Const: General: comfortable, no acute distress and alert <Janell Schaefer PA-C - Last Filed: 10/26/22 08:41> Orientation/consciousness: patient oriented x3 <MICHAEL Jarquin Last Filed: 10/26/22 08:41> Resp: Effort & Inspection: normal respiratory effort <Janell Schaefer PA-C - Last Filed: 10/26/22 08:41> GI: Other: JESSICA with serosanguineous output <Janell Schaefer PA-C - Last Filed: 10/26/22 08:41> Inspection: No distended and Yes incision (clean) <MICHAEL Jarquin Last Filed: 10/26/22 08:41> Palpation (GI): Soft to palpation, Tenderness to palpation present (GI) (mild incisional), no guarding and not rigid <MICHAEL Jarquin Last Filed: 10/26/22 08:41> Skin: General skin exam: no rashes or lesions noted <MICHAEL Jarquin Last Filed: 05/22/23 08:41> Neuro: General: patient oriented x3 and moves all extremities <Janell Schaefer PA-C - Last Filed: 10/26/22 08:41> Objective Data Active Medications Fentanyl (Fentanyl Citrate/Pf 100 Mcg/2 Ml Vial) 50 mcg IVPUSH Q5M PRN; Protocol PRN Reason: Pain, Severe (Pain Scale 7-10) Heparin Sodium (Porcine) (Heparin Sodium,Porcine 5,000 Unit/Ml Vial) 5,000 unit SUBCUT Q8H [facility] Last Admin: 10/26/22 01:39 Dose: 5,000 unit Documented By: KATHERINE Levofloxacin (Levaquin) 500 mg in 100 mls @ 100 mls/hr IV Q24H [facility] Last Infusion: 10/25/22 11:48 Dose: 0 mls/hr Documented By: BARBARA Metronidazole (Flagyl) 500 mg in 100 mls @ 100 mls/hr IV Q8H [facility] Last Infusion: 10/26/22 04:55 Dose: 0 mls/hr Documented By: KATHERINE Morphine Sulfate (Morphine Sulfate 2 Mg/Ml Cartridge) 2 mg IVPUSH Q3H PRN; Protocol PRN Reason: Pain, Moderate(Pain Scale 4-6) Last Admin: 10/25/22 19:28 Dose: 2 mg Documented By: KATHERINE Ondansetron HCl (Ondansetron Hcl 4 Mg/2 Ml Vial) 4 mg IVPUSH ONCE PRN PRN Reason: Nausea and Vomiting Ondansetron HCl (Ondansetron Hcl 4 Mg/2 Ml Vial) 4 mg IVPUSH Q8H PRN PRN Reason: Nausea Oxycodone HCl (Oxycodone Hcl Immed Release 5 Mg Tablet) 5 mg PO ONCE PRN PRN Reason: Pain, Severe (Pain Scale 7-10) Oxycodone HCl (Oxycodone Hcl Immed Release 5 Mg Tablet) 10 mg PO Q4H PRN PRN Reason: Pain, Moderate(Pain Scale 4-6) Last Admin: 10/26/22 07:44 Dose: 10 mg Documented By: TO Oxycodone HCl (Oxycodone Hcl Immed Release 5 Mg Tablet) 5 mg PO Q4H PRN PRN Reason: Pain, Mild (Pain Scale 1-3) Last Admin: 10/25/22 17:52 Dose: 5 mg Documented By: BARBARA Sodium Chloride (0.9 % Sodium Chloride Flush 3 Ml Syringe) 3 ml [facility] Last Admin: 10/26/22 07:44 Dose: 3 ml Documented By: TO <Janell Schaefer PA-C - Last Filed: 10/26/22 08:41> Labs CBC & Chem 7: 10/24/22 08:40 10/24/22 08:40 <Janell Schaefer PA-C - Last Filed: 10/26/22 08:41> Microbiology Microbiology Results: Microbiology 10/24/22 08:40 Blood Culture - Preliminary Blood - Venous No growth after 24 hours. 10/24/22 08:40 Blood Culture - Preliminary Blood - Venous No growth after 24 hours. <Janell Schaefer PA-C - Last Filed: 10/26/22 08:41> Procedures Date of Service Date of Service: 10/26/22 <Janell Schaefer PA-C - Last Filed: 10/26/22 08:41> 10/26/22 <Marquis Ingram MD - Last Filed: 10/26/22 12:27> Progress Note: A&P Assessment and plan (1) Acute cholecystitis: Status: Acute <Janell Schaefer PA-C - Last Filed: 10/26/22 08:41> (2) S/P laparoscopic cholecystectomy: Status: Acute <Janell Schaefer PA-C - Last Filed: 10/26/22 08:41> Assessment and Plan: some incisional pain tolerating diet looks well anicteric abd soft incisions clean JESSICA scanty serousanguinous output plan to dc home later today seen and examined independently <Marquis Ingram MD - Last Filed: 10/26/22 12:27> Assessment and Plan: 57 year old female admitted with acute cholecystitis now POD #2 status post lap cholecystectomy. Doing well post op however on IV and PO analgesics. VSS. Abd exam benign with appropriate post op tenderness, incisions clean, JESSICA output scanty and removed. Encouraged PO analgesics in preparation for discharge to home later today. Will reassess. <Janell Schaefer PA-C - Last Filed: 10/26/22 08:41> Time Spent With Patient Time: Total time managing care of this patient today ____ minutes. <Janell Schaefer PA-C - Last Filed: 10/26/22 08:41> Quality Stroke Does the patient have a stroke diagnosis?: No <Janell Schaefer PA-C - Last Filed: 10/26/22 08:41> VTE Prior VTE?: No <Janell Schaefer PA-C - Last Filed: 10/26/22 08:41> VTE Risk Level:: Medical - moderate - high <Janell Schaefer PA-C - Last Filed: 10/26/22 08:41> VTE Device Contraindication: N/A - Device Ordered <Janell Schaefer PA-C - Last Filed: 10/26/22 08:41> VTE Drug Contraindication: N/A - Med Ordered <Janell Schaefer PA-C - Last Filed: 10/26/22 08:41>
--- NOTE | 2022-10-26 09:05 | HO.POSTANES ---
Post Anesthesia Evaluation Post Anesthesia Evaluation Vital Signs: Vital Signs Temp Pulse Resp BP Pulse Ox O2 Del Method 10/26/22 07:22 98.1 F 90 18 148/65 H 94 Room Air 10/26/22 04:00 98.3 F 99 18 152/76 H 94 Room Air Anesthesia: General Endotracheal-GETA Mental Status: Awake Pain Control: Satisfactory Nausea/Vomiting: None Hydration: Adequate Anesthesia-Related Issues: No Anes. Related Issues
[2022-10-26] MEDS: levoFLOXacin/D5W 500 MG/100 ML PIGGYBACK 100 MG IV (10:13)
[2022-10-26 11:00] VITALS: O2SAT 94
--- NOTE | 2022-10-26 13:27 | PM.DS ---
DS: Providers Provider Date of Service: 10/26/22 Date of admission: 10/24/22 10:55 Primary care physician: Marquis Lopez MD Attending physician on admission: Marquis Ingram Consults: 10/24/22 10:38 Consult to General Surgery Stat Consulting Provider: [facility] [place] [facility] Reason for consultation: acute lul DS: Diagnosis Discharge Diagnosis (1) Acute cholecystitis: Status: Acute (2) S/P laparoscopic cholecystectomy: Status: Acute DS: Summary Hospital Course Hospital Course: HPI AT ADMISSION: Latasha Valdes is a 57 year old female who came to the ER this morning because of right upper quadrant pain.? She says that she has had this for about days now.? She denies vomiting but does have some nausea. She says that the pain had been persistent. ? This had been constant as well. She denies any fever but says she may have had some chills yesterday. Aside from significant smoking history and anxiety/ depression,? She says she is relatively healthy. She says she continues to have pain at this time and has been asking for pain medications in the ED. HOSPITAL COURSE: She was admitted to the surgical service for further treatment of acute cholecystitis. It was recommended to proceed with laparoscopic cholecystectomy. She agreed and was added onto the OR schedule for that day. On 10/24/22, a laparoscopic cholecystectomy was performed by Dr. Ingram without complication. She was found to have a distended, indurated and very erythematous gallbladder with omental adhesions with hydropic and purulent fluid. A JESSICA drain was placed. She tolerated the procedure well. She had an uncomplicated recovery course. She stayed inpatient for two nights for IV abx given the purulent gallbladder. On the day of discharge, she was tolerating a solid diet without nausea or vomiting, she was ambulating without difficulty and had adequate pain control on oral analgesics. Her JESSICA drain output was serosanguineous and removed. She was discharged to home on 10/26/22 in stable condition on a PO course of levaquin/flagyl. She is to follow up in the office in 2 weeks. Status at Discharge Functional status at discharge: independent ambulation Overall status at discharge: patient is progressing back to baseline Time Spent with Patient Time attestation: Total time managing care of this patient today ____ minutes. Discharge coordination time: Less than 30 minutes Quality: Safe Use of Opioids Does Pt have an Active Cancer Diagnosis on the Problem List?: No Quality: Stroke Does the patient have a stroke diagnosis?: No Physical Exam Vital Signs: Vital Signs: Last Vital Signs Temp 98.1 F 10/26/22 07:22 Pulse 90 10/26/22 07:22 Resp 18 10/26/22 07:22 BP 148/65 H 10/26/22 07:22 Pulse Ox 94 10/26/22 11:00 O2 Del Method Room Air 10/26/22 11:00 O2 Flow Rate 2 10/24/22 14:23 BMI result Body Mass Index 23.6 Const: General: comfortable, no acute distress and alert Orientation/consciousness: patient oriented x3 Resp: Effort & Inspection: normal respiratory effort GI: Inspection: No distended and Yes incision (clean) Palpation (GI): Soft to palpation, Tenderness to palpation present (GI) (mild incisional tenderness), no guarding and not rigid Skin: General skin exam: no rashes or lesions noted Neuro: General: patient oriented x3 and moves all extremities DS: Data Data Completed and Pending Pending studies at discharge: Pending at discharge 10/24/22 13:19 Surgical [PTH] Routine Labs on day of discharge: Preliminary micro results at discharge 10/24/22 08:40 Blood Culture - Preliminary Blood - Venous No growth after 48 hours. 10/24/22 08:40 Blood Culture - Preliminary Blood - Venous No growth after 48 hours. Discharge Plan Discharge Anticipated Discharge Date/Time: 10/26/22 12:46 Patient Disposition: Home, Self-Care Discharge Diagnosis: acute cholecystitis, s/p laparoscopic cholecystectomy Referrals: Marquis Ingram MD [Physician] - 2 Weeks Marquis Lopez MD [Primary Care Provider] - 1 Week Discharge Medications: New docusate sodium [Colace] 100 mg capsule 100 mg PO BID Qty: 30 0RF ibuprofen 600 mg tablet 600 mg PO Q6H PRN (Reason: pain) Qty: 30 0RF oxycodone 5 mg tablet 5 mg PO Q4H PRN (Reason: pain) Qty: 20 0RF Rx Instructions: Partial Fill upon patient request. levofloxacin 500 mg tablet 500 mg PO DAILY 3 Days Qty: 3 0RF metronidazole 250 mg tablet 250 mg PO TID Qty: 9 0RF Continued divalproex 500 mg tablet,delayed release (DR/EC) 500 mg PO QAM Otezla 30 mg Tablet See Rx Instructions .ROUTE .COMPLEX Rx Instructions: CHECK WHEN PATIENT BRINGS IN Zoryve 0.3 % cream 1 appl topical DAILY olanzapine 15 mg tablet 15 mg PO BEDTIME Discharge Orders: Discharge Order (Routine); Ordered 10/26/22 Ordered By: Janell Schaefer Diet: Low fat, low cholesterol Activity on Discharge: No heavy lifting Stand Alone Forms: Patient Portal Discharge page Activity Restrictions/Additional Instructions: If the incision area is tender, you may apply an ice pack for short intervals (No more than 20 minutes on, followed by at least 20 minutes off). Do not apply heat. Do not use creams, lotions, or topical antibiotics. These can cause infection or allergic reaction. Ok to shower 24 hours after your surgery. You have steri strips (small white cloth strips) covering your incision- these will fall off ~1 week. Follow up in office with Dr. Ingram in 2 weeks. ([phone]) No heavy lifting (>10-20lbs) or strenuous activity! Call Your Doctor If: -Your temperature exceeds 101.5? F -You experience excessive pain or swelling -You have an unexpected reaction to medication -You have excessive bleeding -You experience continued vomiting/nausea -Your incision begins to separate -Your incision shows signs of infection such as increased redness, swelling, excessive pain, drainage (light blood or clear fluid is normal) or heat Care Plan Goals: Return to baseline health and resume normal activities following recovery period. Health Concerns: acute cholecystitis Plan of Treatment: s/p laparoscopic cholecystectomy f/u in office in 2 weeks Assessment: Doing well post op
--- NOTE | 2022-10-26 13:56 | MHC.CM.PN ---
[place] HOME TODAY - SELF CARE
--- NOTE | 2022-10-26 14:55 | PM.EVENT ---
Event Note Date of Service: 10/26/22 Event Note: Seen on afternoon rounds Continues to feel well Tolerating diet Good pain control Abdomen soft She looks well She says she is ready to be discharged Discharge instructions given Will see in the office for follow-up visit Time Spent With Patient Time: Total time managing care of this patient today ____ minutes.
== END 2022-10-26 14:01 | disposition home or self-care (01) | DRG 263 ==
LOC: HO.ED 10:39 → HO.EDOVER 11:21 → HO.S3 12:26
PROVIDERS: Nurse Practitioner Family; Admitting Provider Surgery; Emergency Provider Emergency Medicine Emergency Medical Services; PCP Internal Medicine; Visit Provider Surgery
PROC: 0FT44ZZ Resection of Gallbladder, Percutaneous Endoscopic Approach (ICD-10-PCS; CPT 47562; principal; 2022-10-24 11:30)
DX: K81.0 Acute cholecystitis (principal); K82.A1 Gangrene of gallbladder in cholecystitis; K43.9 Ventral hernia without obstruction or gangrene; F17.210 Nicotine dependence, cigarettes, uncomplicated; Z71.6 Tobacco abuse counseling; Z88.0 Allergy status to penicillin; Z79.899 Other long term (current) drug therapy
CPT/HCPCS: 47562; 36415; 74177; 80048; 80076; 81001; 83605; 83690; 85025; 87040; 87086; 88304; 99285; J0131; J1100; J1170; J1643; J1956; J2250; J2270; J2405; J2795; J3010; Q9967

== ENCOUNTER → 2022-11-05 15:42 | Outpatient (BNVA) | payer OTHER, SELFPAY | PROVIDERS: PCP Internal Medicine; Visit Provider Surgery ==

== ENCOUNTER 2023-12-16 09:34 | Emergency (ER) | payer OTHER, SELFPAY ==
--- NOTE | ~2023-12-16 | XR_ITS ---
EXAMINATION: XR FOOT, RIGHT CLINICAL INFORMATION: Foot pain COMPARISON: None available. TECHNIQUE: AP, lateral, and oblique views of the right foot. FINDINGS: There is a vertical fracture through the base of the second metatarsal involving the joint space. There is a tiny avulsion fracture arising from the dorsal surface of cuneiform. There is generalized soft tissue swelling of the foot. No other fractures or dislocations are seen. XR/XR foot RT min 3V IMPRESSION: Fracture base of second metatarsal and tiny avulsion fracture dorsal cuneiform.
[2023-12-16 10:10] VITALS: BP 138/77; PULSE 92; RESP 16; TEMP 36.9; O2SAT 98; BMI 23.8
--- NOTE | 2023-12-16 13:17 | ED.LOWEXIN ---
HPI - Extremity Injury (Lower) General Chief Complaint: Extremity Injury, Lower Stated Complaint: r foot inj Time Seen by Provider: 12/16/23 13:17 Source: patient Mode of arrival: ambulatory Limitations: no limitations History of Present Illness ED Provider: Conchita Marques PA-C HPI Narrative: 58 yo female presenting for evaluation of right foot pain after she fractured it on 12/03 walking down the stairs at home. she tripped and injured her right foot at home. she went to [place] that day and went to urgent care for evaluation. she was dx with foot fracture and placed in a post op shoe, told to f/u with orthopedics. she has been taking motrin for pain. she has been using a cane. she reports pain is 9/10 and located in the middle of the right foot. she reports severe swelling. no numbness or tingling. complaint: foot injury Onset (ago): week(s) Place: home Severity: severe Severity scale (1-10): 9 Relieving factors: immobilization and rest Exacerbating factors: weight bearing, movement and palpation Context: fall Associated symptoms: swelling and able to partially bear weight Other symptoms: none Treatments prior to arrival: NSAIDS Related Data Home Medications ?Medication ?Instructions ?Recorded ?Confirmed apremilast 30 mg tablet (Otezla) See Rx Instructions .Route .COMPLEX 10/24/22 10/24/22 divalproex 500 mg tablet,delayed 500 mg PO QAM 10/24/22 10/24/22 release olanzapine 15 mg tablet 15 mg PO BEDTIME 10/24/22 10/24/22 roflumilast 0.3 % topical cream 1 appl topical DAILY 10/24/22 10/24/22 (Zoryve) Previous Rx's ?Medication ?Instructions ?Recorded docusate sodium 100 mg capsule 100 mg PO BID #30 caps 10/26/22 (Colace) ibuprofen 600 mg tablet 600 mg PO Q6H PRN pain #30 tabs 10/26/22 levofloxacin 500 mg tablet 500 mg PO DAILY 3 days #3 tabs 10/26/22 metronidazole 250 mg tablet 250 mg PO TID #9 tabs 10/26/22 oxycodone 5 mg tablet 5 mg PO Q4H PRN pain #20 tabs 10/26/22 hydrocodone 5 mg-acetaminophen 325 1 tab PO Q8H PRN severe pain 12/16/23 mg tablet (scale score 7-10) #8 tabs Allergies Allergy/AdvReac Type Severity Reaction Status Date / Time Penicillins [PENICILLINS] Allergy Severe ANAPHYLAXIS Verified 12/16/23 10:13 Review of Systems Review of Systems: Yes all other systems are reviewed and are negative [facility] Past Medical History Medical History Acute cholecystitis Anxiety and depression Smoker Surgical History History of laparoscopic cholecystectomy (~10/24/22) Social History Social History Household Members: Spouse Housing: House Do you presently have visiting nurse or other home services: No Comment: no griamcing pwd speaking in full sentences Patient Tobacco Use Status: Current everyday Tobacco user Tobacco use type: Cigarette e-Cigarette/Vaping Use: Never Used Second Hand Smoke Exposure: Yes Substance Use Type: Caffiene Advance Directives: No service: No Current occupational status: employed Physical Exam Vital Signs: Vital Signs: Last Vital Signs Temp 98.0 F 12/16/23 13:33 Pulse 86 12/16/23 13:33 Resp 18 12/16/23 13:33 BP 144/84 H 12/16/23 13:33 Pulse Ox 98 12/16/23 13:33 O2 Del Method Room Air 12/16/23 13:33 BMI result Body Mass Index 23.8 Appearance: Alert. Oriented X3. No acute distress. HEENT: normal inspection CVS: Normal heart rate and rhythm. Pulses normal. Respiratory: No respiratory distress. Skin: Skin warm and dry. Normal skin color. Normal skin turgor. No rashes. Extremities: right foot with moderate generalized swelling, tenderness on the top of the foot, no deformity. pain with dorsiflexion and plantar flexion, strength is normal. foot is warm, 2+ DP/PT pulses, antalgic gait Neuro: Oriented X 3. No motor deficit. No sensory deficit. Medical Decision Making Medical Decision Making MDM Narrative: 58 yo female presenting with right foot pain after she reportedly fractured it on 12/03. xrays repeated today and are c/w fx 2nd metatarsal. placed in walking boot with significant improvement in her pain crutches provided as well as training will refer to ortho, short course norco sent to pharmacy counseled on RICE stable for d/c home Differential Diagnosis Differential Diagnoses: The differential diagnosis associated with the presentation includes foot fracture, toe fracture, ankle fracture, foot sprain Independent Interpretation I performed an independent interpretation of an: Plain X-Ray Interpretation: 2nd metatarsal fracture Radiology Impression Discussion of test interpretation with radiology: I have reviewed the radiologist's reading. Radiologist Impression: EXAMINATION: XR FOOT, RIGHT CLINICAL INFORMATION: Foot pain COMPARISON: None available. TECHNIQUE: AP, lateral, and oblique views of the right foot. FINDINGS: There is a vertical fracture through the base of the second metatarsal involving the joint space. There is a tiny avulsion fracture arising from the dorsal surface of cuneiform. There is generalized soft tissue swelling of the foot. No other fractures or dislocations are seen. XR/XR foot RT min 3V IMPRESSION: Fracture base of second metatarsal and tiny avulsion fracture dorsal cuneiform. External Record Review External record reviewed: Outpatient record and Prior outpatient labs Prescription Management I considered prescription management with: Pain Medication Critical Care Time Critical Care Time Critical Care Time: No Discharge Plan Discharge Clinical Impression: Foot fracture, right Qualifiers: Encounter type: initial encounter Fracture type: closed Qualified Code(s): S92.901A - Unspecified fracture of right foot, initial encounter for closed fracture Patient Disposition: Home, Self-Care Instructions: Foot Fracture in Adults (ED) Additional Instructions: wear the provided walking boot and use crutches as needed continue motrin for pain and inflammation elevate and ice your foot when possible take the prescribed narcotic pain medication as needed for severe pain only, do not drive after taking this medication follow up with orthopedics - call for an appointment, name and number below If you develop new or worsening symptoms call 911 or come back to the ER for further evaluation. Prescriptions: New hydrocodone-acetaminophen 5-325 mg tablet 1 tab PO Q8H PRN (Reason: severe pain (scale score 7-10)) Qty: 8 0RF Rx Instructions: Partial Fill upon patient request. No Action divalproex 500 mg tablet,delayed release (DR/EC) 500 mg PO QAM Otezla 30 mg Tablet See Rx Instructions .ROUTE .COMPLEX Rx Instructions: CHECK WHEN PATIENT BRINGS IN Zoryve 0.3 % cream 1 appl topical DAILY olanzapine 15 mg tablet 15 mg PO BEDTIME docusate sodium [Colace] 100 mg capsule 100 mg PO BID Qty: 30 0RF ibuprofen 600 mg tablet 600 mg PO Q6H PRN (Reason: pain) Qty: 30 0RF oxycodone 5 mg tablet 5 mg PO Q4H PRN (Reason: pain) Qty: 20 0RF Rx Instructions: Partial Fill upon patient request. levofloxacin 500 mg tablet 500 mg PO DAILY 3 Days Qty: 3 0RF metronidazole 250 mg tablet 250 mg PO TID Qty: 9 0RF Referrals: [facility] [Provider Group] (FOOT FRACTURE) Interventions: ED Discharge Assessment Last Done: 12/16/23 13:33 Discharge Date/Time: 12/16/23 13:35 Print Language: Yakut
[2023-12-16 13:31] VITALS: BP 0/0; PULSE 80; RESP 17; TEMP 36.8; O2SAT 100
[2023-12-16 13:33] VITALS: BP 144/84; PULSE 86; RESP 18; TEMP 36.7; O2SAT 98
== END 2023-12-16 13:35 | disposition home or self-care (01) ==
PROVIDERS: Emergency Provider Emergency Medicine; PCP Internal Medicine
DX: S92.321A Displaced fracture of second metatarsal bone, right foot, initial encounter for closed fracture (principal); W10.8XXA Fall (on) (from) other stairs and steps, initial encounter; Y93.89 Activity, other specified; Y92.9 Unspecified place or not applicable; Y99.9 Unspecified external cause status
CPT/HCPCS: 73630; 99282; 99283

== ENCOUNTER 2025-04-09 14:52 | Outpatient (AMB) | payer OTHER, SELFPAY ==
--- OUTSIDE RECORDS SUMMARY | 2024-05-17 04:53 | XMS_ITS ---
Author Organization [facility] Address [address], [place] [id number] Care Team Providers Care Configuration Management Advisor Name Role Phone TONIA SEGURA Primary Care Provider Encounters Encounter Location Date Provider Diagnosis [facility] [address] [place] [address] 05/17/2024 TONIA SEGURA PLAN OF TREATMENT No Information
--- OUTSIDE RECORDS SUMMARY | 2024-08-15 04:33 | XMS_ITS ---
Author Organization [facility] Address [address] [place], [place] [id number] Care Team Providers Care Sanitation Technician Name Role Phone TONIA SEGURA Primary Care Provider REASON FOR REFERRAL Reason Referral Dr. Shannon Pearce pulmonary from lung nodules some copy of my note CAT scan labs up to him Diagnosis 1 Lung nodules (R91.8) Referral Organization [facility] Referring Provider First Name TONIA Referring Provider Last Name IMELDA Referring Provider Speciality Internal M edicine General Notes Katie CUELLAR MA 01/05 08:42:39 PM > duplicate referral Referral Priority Routine REASON FOR VISIT dr madison Encounters Encounter Location Date Provider Diagnosis [facility] [address] [place] [id number] 08/15/2024 TONIA SEGURA Lung nodules R91.8 ASSESSMENTS Encounter Date Diagnosis Assessment Notes Treatment Notes Treatment Clinical Notes Section Notes 08/15/2024 Lung nodules (ICD-10 - R91.8) PLAN OF TREATMENT Referrals Referral Date Details Referral Dr. Shannon Pearce pulmonary from lung nodules some copy of my note CAT scan labs up to him Consultation Request Notes Referral Date Referring Provider Referred Provider Not es 08/15/2024 TONIA SEGURA , Referral Dr. Adal Pearce pulmonary from lung nodules some copy of my note CAT scan labs up to him
--- OUTSIDE RECORDS SUMMARY | 2024-08-25 04:31 | XMS_ITS ---
Author Organization [facility] Address [address] [place], [place] [id number] Care Team Providers Care Beater Room Helper Name Role Phone TONIA SEGURA Primary Care Provider [phone] REASON FOR VISIT pulonologist Encounters Encounter Location Date Provider Diagnosis [facility] [address] [place] [address] 08/25/2024 TONIA SEGURA PLAN OF TREATMENT No Information
--- OUTSIDE RECORDS SUMMARY | 2024-10-26 05:00 | XMS_ITS ---
Author Organization [facility] Address [address] [place], [place] [id number] Care Team Providers Care Graduate Intern Name Role Phone TONIA SEGURA Primary Care Provider [phone] REASON FOR VISIT 42 6mo F/U Encounters Encounter Location Date Provider Diagnosis [facility] [address] [facility] [place] [address] 10/26/2024 TONIA SEGURA PLAN OF TREATMENT No Information
--- OUTSIDE RECORDS SUMMARY | 2024-10-26 05:49 | XMS_ITS ---
Author Organization [facility] Address [address] [place], [place] [id number] Care Team Providers Care Reference Assistant Name Role Phone TONIA SEGURA Primary Care Provider REASON FOR VISIT 3 MO F/U LDCT Encounters Encounter Location Date Provider Diagnosis [facility] [address] [place] [address] 10/26/2024 TONIA SEGURA Screening for lung cancer Z12.2 ASSESSMENTS Encounter Date Diagnosis Assessment Notes Treatment Notes Treatment Clinical Notes Section Notes 10/26/2024 Screening for lung cancer (ICD-10 - Z12.2) PLAN OF TREATMENT No Information
--- OUTSIDE RECORDS SUMMARY | 2024-11-17 03:38 | XMS_ITS ---
Author Organization [facility] Address [address] [place], [place] [id number] Care Team Providers Care Combination Operator Name Role Phone TONIA SEGURA Primary Care Provider REASON FOR VISIT Rosuvastatin Calcium refill MEDICATIONS Medication SIG (Take, Route, Frequency, Duration) Notes Start Date End Date Status Rosuvastatin Calcium 10 MG TAKE 1 TABLET BY MOUTH EVERY DAY FOR 30 DAYS orally once daily for 90 days Active Encounters Encounter Location Date Provider Diagnosis [facility] [address] [place] [address] 11/17/2024 TONIA SEGURA PLAN OF TREATMENT Medication Medication Name Sig Start Date Stop Date Notes Rosuvastatin Calcium 10 MG TAKE 1 TABLET BY MOUTH EVERY DAY FOR 30 DAYS orally once daily for 90 days
--- OUTSIDE RECORDS SUMMARY | 2024-11-22 11:43 | XMS_ITS ---
Author Organization [facility] Address [address] [place], [place] [id number] Care Team Providers Care Paper Products Supervisor Name Role Phone TONIA SEGURA Primary Care Provider [phone] REASON FOR REFERRAL Reason Referral Dr. Shannon Crump of pulmonary for abnormal chest CT. Send last note and the most recent CAT scan up to him Diagnosis [address] (R 93.89) Referral Organization [facility] Referring Provider First Name TONIA Referring Provider Last Name IMELDA Referring Provider Speciality Internal M edicine Referred Provider Specialty Pulmonary Di seases General Notes Katie CUELLAR MA 01/05 08:43:07 PM > duplicate referral Referral Priority Routine REASON FOR VISIT ct scan PROBLEMS Problem Type ICD Code Onset Dates Problem Status W/U Status Risk SNOMED Code Notes Problem Abnormal chest CT (R93.89) Active confirmed [id number] Encounters Encounter Location Date Provider Diagnosis [facility] [address] [place] [address] 11/22/2024 TONIA SEGURA Abnormal chest CT R93.89 ASSESSMENTS Encounter Date Diagnosis Assessment Notes Treatment Notes Treatment Clinical Notes Section Notes 11/22/[address] (ICD-10 - R93.89) PLAN OF TREATMENT Referrals Referral Date Details Referral Dr. Shannon Crump of pulmonary for abnormal chest CT. Send last note and the most recent CAT scan up to him Consultation Request Notes Referral Date Referring Provider Referred Provider Carlos angeles 11/22/2024 TONIA SEGURA , Referral Dr. Adal Crump of pulmonary for abnormal chest CT. Send last note and the most recent CAT scan up to him
--- OUTSIDE RECORDS SUMMARY | 2024-12-06 05:00 | XMS_ITS ---
Author Organization [facility] Address [address], [place] [id number] Care Team Providers Care Store Group Manager Name Role Phone TONIA SEGURA Primary Care Provider ALLERGIES Allergen (clinical drug ingredient) Drug/Non Drug Allergy documented on EMR Reaction Allergy Type Onset Date Status Penicillin Unknown Drug Allergy Active REASON FOR REFERRAL Reason (faxed 01/14/25) Cons ultation Dr. Hernández pulmonary [place] active smoker lung nodules send last 2 years of notes labs and CAT scans to him Diagnosis 1 Lung nodules (R91.8) Referral Organization [facility] Referring Provider First Name TONIA Referring Provider Last Name IMELDA Referring Provider Speciality Internal M edicine Referred Provider NEO HERNÁNDEZ Referred Provider Specialty Pulmonary Di seases General Notes Katie CUELLAR MA 01/05 08:44:16 PM > faxed referral to Dr Hernández's office , f: [phone] Referral Priority Routine REASON FOR VISIT 42 CPX MEDICATIONS Medication SIG (Take, Route, Frequency, Duration) Notes Start Date End Date Status OLANZapine 15 MG TAKE 1 TABLET BY TOMASZ TH EVERY DAY FOR 30 DAYS for 90 Active traZODone HCl 100 MG 2 tabs Orally Once a day Active Divalproex Sodium 500 MG TAKE 1 TABLET B Y MOUTH EVERY DAY FOR 30 DAYS for 90 Active Rosuvastatin Calcium 10 MG TAKE 1 TABLET BY MOUTH EVERY DAY FOR 30 DAYS orally once daily for 90 days Active PROBLEMS Problem Type ICD Code Onset Dates Problem Status W/U Status Risk SNOMED Code Notes Problem Atrophy of thyroid (acquired) (E03.4) Active confirmed Atrophy of thyroid - acquired (532483450) VITAL SIGNS Height 74 in 12/06/2024 Weight 143 lbs 12/06/2024 Blood pressure systolic 124 mm Hg 12/07/19 25 Blood pressure diastolic 80 mm Hg 025 BMI 18.36 kg/m2 12/06/2024 Encounters Encounter Location Date Provider Diagnosis [facility] [address] [place] [address] 12/06/2024 TONIA SEGURA Disorder of lipoprotein metabolism, unspecified E78.9 ; Tobacco use Z72.0 ; Atrophy of thyroid (acquired) E03.4 ; Major depressive disorder, single episode, unspecified F32.9 ; Encounter for general adult medical examination without abnormal findings Z00.00 ; Chronic fatigue, unspecified R53.82 and Lung nodules R91.8 ASSESSMENTS Encounter Date Diagnosis Assessment Notes Treatment Notes Treatment Clinical Notes Section Notes 12/06/2024 Disorder of lipoprotein metabolism, unspecified (ICD-10 - E78.9) Continue rosuvastatin. Review of systems negative for side effects check lipid profile. LDL goal less than 100. Follow-up in 6 months if at goal 12/06/2024 Tobacco use (ICD-10 - Z72.0) 5-day's discussed with patient. Strongly recommend discontinuing smoking completely. 12/06/2024 Atrophy of thyroid (acquired) (ICD-10 - E03.4) Stable check TSH follow-up in 6 months 12/06/2024 Major depressive disorder, single episode, unspecified (ICD-10 - F32.9) Patient stable doing very well. Follow-up with her therapist every month follow-up with psychiatry every 3 months 12/06/2024 Encounter for general adult medical examination without abnormal findings (ICD-10 - Z00.00) Physical exam review of systems stable unchanged. Colonoscopy up-to-date. Mammogram q. year. Bone density every 2 to 3 years. Recommended smoking cessation. Check EKG sinus rhythm. Follow-up CEREAL MILLER q. year. Check full labs. 12/06/2024 Chronic fatigue, unspecified (ICD-10 - R53.82) Stable doing well no symptoms at the present time 12/06/2024 Lung nodules (ICD-10 - R91.8) Follow-up CT scan of the chest for January. Stop smoking. Will consult Dr. Hernández from pulmonary PLAN OF TREATMENT Treatment Notes Assessment Notes Disorder of lipoprotein meta bolism, unspecified Continue rosuvastatin. Review of systems negative for side effects check lipid profile. LDL goal less than 100. Follow-up in 6 months if at goal Tobacco use 5-day's discussed wi th patient. Strongly recommend discontinuing smoking completely. Atrophy of thyroid (acquired) Stable wilber ck TSH follow-up in 6 months Major depressive disorder, s libra episode, unspecified Patient stable doing very well. Follow-u p with her therapist every month follow-up with psychiatry every 3 months Encounter for general adult medical examination without abnormal findings Physical exam review of systems stable unchanged. Colonoscopy up-to-date. Mammogram q. year. Bone density every 2 to 3 years. Recommended smoking cessation. Check EKG sinus rhythm. Follow-up CEREAL MILLER q. year. Check full labs. Chronic fatigue, unspecified Stable doin g well no symptoms at the present time Lung nodules Follow-up CT scan of the chest for January. Stop smoking. Will consult Dr. Hernández from pulmonary Pending Test Test Name Order Date CT Chest without IV contrast 12/06/2024 Referrals Referral Date Details (faxed 01/14/25) Cons ultation Dr. Hernández pulmonary [place] active smoker lung nodules send last 2 years of notes labs and CAT scans to him, NEO HERNÁNDEZ Next Appt Details Follow Up: Follow-up labs to day EKG. Set up chest CT for January. Set up pulmonary consult Dr. Galeas, Reason: Progress Notes * Examination Category Sub-Category Detail Notes Category Not es General Examination HEENT: Conjunctiva pink anicteric mucous membranes moist oropharynx clear TMs clear sinuses clear EACs clear fundi negative Pleasant pleasant white female appearing stated age no apparent distress Neck: Carotids 2+ supple n o bruits lymphadenopathy no thyromegaly no masses Heart: RRR, no murmurs, cli cks or rubs Lungs: clear to auscultatio n Abdomen: soft, non tender/non distended, no rebound tenderness, no guarding or rigidity, no masses palpated, no hepatosplenomegaly, normal active bowel sounds Extremities: no clubbing , cyanos is, or edema, pulses 2 plus bilaterally General Appearance Pleasant white femal e appearing stated age no apparent distress Skin: normal, no rash, kanwal ign appearing moles Neuro alert and oriented x 3, CN 2-12 intact, motor 5/5 bilaterally proximally and distally in all 4 extremities, no focal abnormality Breasts : Per CEREAL MILLER declined History and Physical Notes * HPI (History of Present Illness) Category Sub-Category Detail Notes Category Not es General Physical exam. See review of systems below Consultation Request Notes Referral Date Referring Provider Referred Provider Not es 12/06/2024 TONIA SEGURA MIGUEL (faxed 01/14/25) Consultation Dr. Hernández pulmonary [place] active smoker lung nodules send last 2 years of notes labs and CAT scans to him
--- OUTSIDE RECORDS SUMMARY | 2024-12-07 01:32 | XMS_ITS ---
Author Organization [facility] Address [address] [place], [place] [id number] Care Team Providers Care Rn Geriatric Name Role Phone TONIA SEGURA Primary Care Provider REASON FOR VISIT (W)ua Encounters Encounter Location Date Provider Diagnosis [facility] [address] [place] [address] 12/07/2024 TONIA SEGURA Pyuria, sterile R82.81 ASSESSMENTS Encounter Date Diagnosis Assessment Notes Treatment Notes Treatment Clinical Notes Section Notes 12/07/2024 Pyuria, sterile (ICD-10 - R82.81) PLAN OF TREATMENT Future Test Test Name Order Date Urinalysis, Complete [id number]/[id number] Urine Culture, Routine-[id number] 12/28/2024
--- OUTSIDE RECORDS SUMMARY | 2024-12-29 04:00 | XMS_ITS ---
Author Organization [facility] Address [address], [place] [id number] Care Team Providers Care Landscape Drafter Name Role Phone TONIA SEGURA Primary Care Provider REASON FOR VISIT LDCT DEPT Encounters Encounter Location Date Provider Diagnosis [facility] [address] [place] [address] 12/29/2024 TONIA SEGURA PLAN OF TREATMENT No Information
[2025-04-09 14:55] VITALS: BP 124/64; PULSE 105; O2SAT 97; BMI 23.8
--- NOTE | 2025-04-09 14:55 | A.OFFVIS_ITS ---
Vital Signs 04/09/25 14:55 Height 5 ft 9 in Weight 160 lb 14.999 oz BMI 23.8 BP 124/64 Blood Pressure Location Lt brachial Position Sitting Pulse 105 H Pulse Oximetry (%) 97 Oxygen Delivery Method Room Air Intake Visit Reasons: Abnormal CT scan Ecosystem Ecology Professor Required: No Accompanied by: Self / Same As Patient Allergies Penicillins (PENICILLINS) Allergy (Severe, Verified 04/09/25 14:58) ANAPHYLAXIS HPI Comments Details: The patient is here for pulmonary evaluation. The patient is a 60 year woman w ith known pulmonary nodules. The patient states that she also has been smoking for prolonged period of her life. She is down to about 5 cigarettes a day she also cut down on the strength of the nicotine. She is trying to quit and she has quit before. She did have a CT scan to the lung cancer screening program at [facility]. Her last 1 was back in November 2024 demonstrating multiple pulmonary nodules. The largest nodule measuring about 10 mm in size in the right hemithorax also with significant bilateral tree-in-bud and bronchiolitis along with bronchitis. Explained to her that a lot of her findings are likely smoking-related. Even the bronchiolitis is likely respiratory bronchiolitis from the smoking itself. Still smoldering infections are in differential. The patient does have a chronic cough with chest congestion. Moderate severity. She does not have any inhalers at this time. Also to note I did review her CT scan of the chest and she does have some emphysema but located in the lower lung zones which is atypical for centrilobular emphysema. Therefore, at some point we could consider testing for alpha-1 antitrypsin. For now will start the patient on Wixela for the combination inhaler to decrease her chronic bronchitis and bronchiolitis. In addition to that will start her on azithromycin to help her with the mucus burden and for the anti-inflammatory properties. The patient will have a CAT scan in a couple months and will follow-up after that. If he has any worsening symptoms she will call. If he has any issues with the smoking cessation she can always call. But for now she is going to quit cold turkey. [facility] Medical History Pulmonary nodules COPD (chronic obstructive pulmonary disease) Bronchiolitis Acute cholecystitis Anxiety and depression Smoker Surgical History History of laparoscopic cholecystectomy (~10/24/22) Social History Household Members: Spouse Housing: House Do you presently have visiting nurse or other home services: No Comment: no griamcing pwd speaking in full sentences Patient Tobacco Use Status: Current everyday Tobacco user Tobacco use type: Cigarette e-Cigarette/Vaping Use: Never Used Second Hand Smoke Exposure: Yes Substance Use Type: Caffiene service: No Current occupational status: employed Review of Systems Const Denies chills and Denies fever(s) ENT Reports no additional complaints Card Denies chest pain, Denies dyspnea and Reports dyspnea on exertion Resp Reports chest congestion, Reports cough, Denies dyspnea, Reports dyspnea on exertion and Denies wheezing GI Denies hematochezia and Denies change in bowel habits Denies hematuria Musc Denies back pain and Denies limited range of motion Skin/Breast Denies rash Neuro Denies focal weakness and Denies convulsions Psych Denies depression and Denies mood swings Aller/Immun Denies wheezing Physical Exam Vital Signs: Last Vital Signs Pulse 105 H 04/09/25 14:55 BP 124/64 04/09/25 14:55 Pulse Ox 97 04/09/25 14:55 Oxygen Delivery Method Room Air 04/09/25 14:55 BMI result Body Mass Index 23.8 Const General: comfortable HEENT Head: Yes normocephalic Neck Neck: Yes supple Chest Chest palpation & inspection: normal inspection of the chest Resp Effort & Inspection: normal respiratory effort and Actively coughing Quality: productive Auscultation: diminished lung sounds Cardio Heart sounds: S1 normal heart sound present and S2 normal heart sound present GI Palpation (GI): Soft to palpation Skin General skin exam: no rashes or lesions noted Extrem General: Yes no clubbing, cyanosis or edema Assessment & Plan Assessment & Plan (1) Smoker: Code(s): F17.200 - Nicotine dependence, unspecified, uncomplicated Category: Social Hx (2) Bronchiolitis: Code(s): J21.9 - Acute bronchiolitis, unspecified Category: Medical (3) COPD (chronic obstructive pulmonary disease): Code(s): J44.9 - Chronic obstructive pulmonary disease, unspecified Category: Medical Qualifiers: COPD type: chronic bronchitis Chronic bronchitis type: mucopurulent Qualified Code(s): J41.1 - Mucopurulent chronic bronchitis (4) Pulmonary nodules: Code(s): R91.8 - Other nonspecific abnormal finding of lung field Category: Medical Plan will quit smoking start Wixela BID Start Azithromycin MWF EKG CT chest in 2 months F/U 2-3 months Orders: Orders CT chest wo IV con 2 Months R91.8 - Other nonspecific abnormal finding of lung field Medications: New azithromycin Take 1 tablet on Wednesday/Wednesday/Wednesday 250 mg PO 3XW 12 tabs 1RF 28 days K21.9 - Gastro-esophageal reflux disease without esophagitis fluticasone propion-salmeterol 250-50 mcg/dose (Wixela Inhub) 1 inh inhalation Q12H 60 ea 11RF 30 days Coding Level of Care Code New Pt Level 4 (07770) Diagnoses Smoker F17.200 Bronchiolitis J21.9 Mucopurulent chronic bronchitis J41.1 COPD type: chronic bronchitis Chronic bronchitis type: mucopurulent Pulmonary nodules R91.8 Time Spent (min) 45
--- OUTSIDE RECORDS SUMMARY | 2025-04-09 16:18 | XMS_ITS | Patient Health Record ---
Author Organization [facility] Address [address], [place] [address] Care Team Providers Care Staff Combat Information Center Officer Name Role Phone IMELDA TONIA Primary Care Provider [phone] ALLERGIES Allergen (clinical drug ingredient) Drug/Non Drug Allergy documented on EMR Reaction Allergy Type Onset Date Status Penicillin Unknown Drug Allergy Active REASON FOR REFERRAL Reason Referral Dr. Shannon Pearce pulmonary from lung nodules some copy of my note CAT scan labs up to him Diagnosis 1 Lung nodules (R91.8) Referral Organization [email or web address] Referring Provider First Name TONIA Referring Provider Last Name IMELDA Referring Provider Speciality [facility] ed[facility] General Notes Katie CUELLAR MA 01/05 08:42:39 PM > duplicate referral Referral Priority Routine Reason Referral Dr. Shannon Crump of pulmonary for abnormal chest CT. Send last note and the most recent CAT scan up to him Diagnosis [address] (R 93.89) Referral Organization [facility] Referring Provider First Name TONIA Referring Provider Last Name IMELDA Referring Provider Speciality Internal edicine Referred Provider Specialty Pulmonary Di seases General Notes Katie CUELLAR MA 01/05 08:43:07 PM > duplicate referral Referral Priority Routine Reason (faxed 01/14/25) Cons ultation Dr. Edgar Pearce active smoker lung nodules send last 2 years of notes labs and CAT scans to him Diagnosis 1 Lung nodules (R91.8) Referral Organization [facility] [employer] Referring Provider First Name TONIA Referring Provider Last Name IMELDA Referring Provider Speciality Internal edicine Referred Provider NEO HERNÁNDEZ Referred Provider Specialty Pulmonary Di seases General Notes Katie CUELLAR MA 08/1 08:44:16 PM > faxed referral to Dr Hernández's office , f: [phone] Referral Priority Routine MEDICATIONS Medication SIG (Take, Route, Frequency, Duration) [...] orally once daily for 90 days Active SOCIAL HISTORY Tobacco Use: Social History Observation Description Date Details (start date - stop date) Current Smoker NA - NA Sex Assigned At : Social History Observation Description Sex Assigned At Unknown Smoking Question Answer Notes Are you a: current smoker PROBLEMS Problem Type ICD Code Onset Dates Problem Status W/U Status Risk SNOMED Code Notes Problem Chronic fatigue, unspecified (R53.82) Active confirmed Chronic fatigue syndrome (disorder) (50059977) Problem Atrophy of thyroid (acquired) (E03.4) Active confirmed Atrophy of thyr oid - acquired (045465039) Problem Disorder of lipoprotein metabolism, unspecified (E78.9) Active confirmed Disorder of lipoprotein storage and metabolism (disorder) (648338032) Problem Bipolar disorder, unspecified (F31.9) Active confirmed Bipolar disorde r (72074929) Problem Major depressive disorder, single episode, unspecified (F32.9) Active confirmed Major depressio n, single episode (69509551) Problem Abnormal chest CT (R93.89) Active confirmed [id number] VITAL SIGNS Blood pressure diastolic 80 mm Hg 12/06/2024 Height 74 in 12/06/2024 Blood pressure systolic 124 mm Hg 12/06/2024 Weight 143 lbs 12/06/2024 BMI 18.36 kg/m2 12/06/2024 Encounters Encounter Location Date Provider Diagnosis [address] [address] 05/12/2024 TONIA SEGURA Other specified disorders of bone density and structure, unspecified site M85.80 and Asymptomatic menopausal state Z78.[address] [address] 05/17/2024 TONIA SEGURA [address] [address] 08/15/2024 TONIA SEGURA Lung nodules R91.8 [facility] [address] [place] [address], [place] [address] 08/25/2024 TONIA SEGURA [facility] [address] [place] [address] 10/26/2024 TONIA SEGURA [facility] [address] [place] [address] 10/26/2024 TONIA SEGURA Screening for lung cancer Z12.[address] [place] [address] 11/17/2024 TONIA SEGURA [facility] [address] [place] [address], [place] [address] 11/22/2024 TONIA SE[address]URA Abnormal chest CT R93.[address] [place] [address] 12/06/2024 TONIA SEGURA Disorder of lipoprotein metabolism, unspecified E78.9 ; Tobacco use Z72.0 ; Atrophy of thyroid (acquired) E03.4 ; Major depressive disorder, single episode, unspecified F32.9 ; Encounter for general adult medical examination without abnormal findings Z00.00 ; Chronic fatigue, unspecified R53.82 and Lung nodules R91.[address] [place] [address] 12/07/2024 TONIA SEGURA Pyuria, sterile R82.[address] [place] [address] 12/29/2024 TONIA SEGURA ASSESSMENTS Encounter Date Diagnosis Assessment Notes Treatment Notes Treatment Clinical Notes Section Notes 12/06/2024 Disorder of lipoprotein metabolism, unspecified (ICD-10 - E78.9) Continue rosuvastatin. Review of systems negative for side effects check lipid profile. LDL goal less than 100. Follow-up in 6 months if at goal 12/06/2024 Tobacco use (ICD-10 - Z72.0) 5-day's discussed with patient. Strongly recommend discontinuing smoking completely. 05/12/2024 Other specified disorders of bone density and structure, unspecified site (ICD-10 - M85.80) 05/12/2024 Asymptomatic menopausal state (ICD-10 - Z78.0) 08/15/2024 Lung nodules (ICD-10 - R91.8) 10/26/2024 Screening for lung cancer (ICD-10 - Z12.2) 11/22/[address] (ICD-10 - R93.89) 12/07/2024 Pyuria, sterile (ICD-10 - R82.81) 12/06/2024 Atrophy of thyroid (acquired) (ICD-10 - [...] smoking cessation. Check EKG sinus rhythm. Follow-up PROCEDURE TECH q. year. Check full labs. 12/06/2024 Chronic fatigue, unspecified (ICD-10 - R53.82) Stable doing well no symptoms at the present time 12/06/2024 Lung nodules (ICD-10 - R91.8) Follow-up CT scan of the chest for January. Stop smoking. Will consult Dr. Hernández from pulmonary PLAN OF TREATMENT Pending Test Test Name Order Date CT Chest without IV contrast 12/06/2024 Future Test Test Name Order Date Lipid Panel-[id number] 03/22/2024 Urinalysis, Complete w/ME-[id number] 025 Urine Culture, Routine-[id number] 12/28/2024 Insurance Providers Payer Name Payer Address Payer Phone Subscriber Number Group Number Insured Name Patient Relationship to Insured Coverage Start Date Coverage End Date [facility] [address] [place], [place] [id number] BENJI Self - patient is the insured MEDICAL (GENERAL) HISTORY Medical History History ICD Code major depression bipolar psoarsis tobacco abuse colon [address] Harmon ast 35 alt 55 11/03/22 lipids 220,90,63,139 tsh 3.30, 11/04/23 valproic 37.4 12/21/19 Therapist q [address] Chantal GAUTHIER Psychiatrist q month Dr Coffey Lung cancer screening November 06 no evidence of malignancy emphysematous changes [place] dermatology Status post laparoscopic cholecystectomy [address] Jin ignacio Mammogram February [address] [facility] enter Pertinent lab data October 2022 basic metabolic profile normal creatinine 0.7. LFTs normal slightly elevated AST 35 ALT 55 rest negative cholesterol 220 triglyceride 90 HDL 63 LDL 139. TSH normal CRISTIAN negative hep C negative hep B negative Low-dose CAT scan of the [facility] st October 2024. New 10 mm solid opacity right upper lobe with surrounding tree-in-bud opacity favored to be infectious or inflammatory. Recommend follow-up 3 months Bone density May 2024 normal Mammogram May 2024 normal Surgical History Surgery Date(Month/Year) gall bladder 2022 fused fracture plate with screws 01/2024 Hospitalization History Reason Date(Month/Year) [facility] 01/14/24
--- OUTSIDE RECORDS SUMMARY | 2025-04-09 16:20 | XMS_ITS | Data Portability ---
Author Organization [facility], Main Office Address [address] [place] [address] Care Team Providers Care Boat Rigger Name Role Phone CAREONE (NONO UNIT) OTHER [phone] TONIA SEGURA Primary Care Provider [phone] Assessment Encounter Date Assessment Date Assessment LastModified by Organization Details LastModified Time 01/17/2024 01/17/202401/14: wbc 11.4, hgb 12.9, hct 38.9, na 142, k 4.1, bun 12, creat 0.58 glord Not available 01/17/2024 11:57:07 01/20/2024 01/20/202401/14: wbc 11.4, hgb 12.9, hct 38.9, na 142, k 4.1, bun 12, creat 0.58 [email or web address] Not available 01/20/2024 11:28:38 01/23/2024 01/23/2024 transfer from [facility] after orthopedic surg on ankle Lisfranc dislocation, advanced arthritis, midfoot unstable fracture requiring fixation; s/p midfoot fusion tarsal metatarsal multiple joints 1st & 2nd right foot; open repair dislocation 3rd metatarsal right foot; hx bipolar on meds including divalproex; COMMENT /// Valproic acid (Depakote) has been shown to be associated with osteoporosis and low bone density in some studies. For example, one clinical trial found that 16% of epileptic adults who took valproate for more than a year had osteoporosis, and 52% had osteopenia. [email or web address] Not available 01/23/2024 16:28:20 01/24/2024 01/24/202401/14: wbc 11.4, hgb 12.9, hct 38.9, na 142, k 4.1, bun 12, creat 0.58 Not available 01/24/2024 10:43:17 01/25/2024 01/25/2024 8/10: wbc 11.4, hgb 12.9, hct 38.9, na 142, k 4.1, bun 12, creat 0.58 Not available 01/25/2024 09:14:26 Plan of Treatment Reminders Order Date Submit Date Provider Last Modified By Organization Details Last Modified Time Details Appointments None record ed. Lab None record ed. Referral None record ed. Procedures None record ed. Surgeries None record ed. Imaging None record ed. Medication Orders None record ed. Patient TargetsNo targets recorded. Patient InstructionsNo instructions recorded. Reason for Referral None Reported. Problems Name Problem SNOMED Code Status Onset Date Resolution Date Notes Provider Name and Address Organization Details Recorded Time Closed fracture dislocation of tarsometatarsa l joint 213248088 Active [address], [address], [place], [address], [employer] 4 11:47:38 Bipolar disorder 93231915 Active [address], [address], [place], [address], [email or web address] 4 11:47:44 Insomnia 883759261 Active [address], [address], [place], [address], [email or web address] 4 11:47:49 Problem Notes None recorded. Procedures Surgical History Date Name Laterality Status Provider Name and Address Organization Details Recorded Time laparoscopic cholecystectomy completed [address], [address], [place], [address], [email or web address] 01/17/2024 11:55:29 Imaging Results None recorded. Procedure Notes None recorded. Medical Equipment None Reported. Allergies Allergen ID Allergen Name Allergen Category Reaction Reaction Severity Criticality Documentation Date Start Date Code Code System Note Provider Name and Address Organization Details Recorded Time 07049 Product containin g penicilli n (product) medicatio n Not available Not available Not available 01/17/2024 [address], [address], [place], [address], [email or web address] [facility] 4 11:48:02 94769 amoxicill in medicatio n Not available Not available Not available 01/17/2024 723 RxNorm DEEPAK KING [address] [facility], [address], [place], [address], [email or web address] 4 11:48:05 Medications Not known to be on any medication Vitals Date Recorded Systolic And Diastolic Provider Name and Address Organization Details Last Updated DateTime 01/17/2024 124/70 mm[Hg] DEEPAK KING [address] [facility], [address], [place], [address], [email or web address] 01/17/2024 12:37:02 Date Recorded Body temperature Provider Name a nd Address Organization Details Last Updated DateTime 01/23/2024 97.2 [degF] Daniel Snow MD [address] [facility] [address], [address], [place], [address], [email or web address] [facility] 01/23/2024 16:24:32 Social History Question Answer Notes LastModified by Organizat ion Details LastModified Time Tobacco Smoking Status Current Every Day Smoker DEEPAK KING [address] [place] [address], [address], [place], [address], [email or web address] [facility] 01/17/2024 11:55:08 Do You Have An Advance Directive? Yes Information not available 01/17/2024 What Is Your Code Status? Full Code Information not available 01/17/2024 Where Do You Live? [place] Information not available 01/17/2024 Legal Guardian? No Informati on not available 01/17/2024 Do You Have An Out Of Hospital DNR? No Information not available 01/17/2024 Have You Ever Been Counseled For Unhealthy Alcohol Use? No Information not available 01/17/2024 What Is Your Relationship Status? Information not available 01/17/2024 How Much Tobacco Do You Smoke? 0.25 PPD Information not available 01/17/2024 Has Tobacco Cessation Counseling Been Provided? No Information not available 01/17/2024 How Many Years Have You Smoked Tobacco? 25 Information not available 01/17/2024 Sex: Unknown Functional Status Question Answer Note LastModified by Organizat ion Details LastModified Time Do you use any illicit or recreational drugs? No Information not available 01/17/2024 What is your level of alcohol consumption? Occasional Information not available 01/17/2024 Mental Status None recorded. Family History Relationship Description Onset Age of this Age Resolved Age Notes LastModified by Organization Details LastModified Time Father No current problems or disability glord Not available 01/16 11:54:17 Mother No current problems or disability glord Not available 01/16 11:54:17 Notes:n/c Medical History No medical history recorded. Gynecological HistoryNo gynecological history recorded. Obstetrics History GPAL:G 0 P 0 0 0 0 Immunizations Vaccine Type Date Status Note Provider Nam e and Address Organization Details Recorded Time SARS-COV-2 (COVID-19) vaccine, UNSPECIFIED 08/22/[address] [facility] 01/18/2024 15:28:34 SARS-COV-2 (COVID-19) vaccine, UNSPECIFIED 09/19/[address] [facility] 01/18/2024 15:28:41 SARS-COV-2 (COVID-19) vaccine, UNSPECIFIED 06/09/2021 [facility] 01/18/2024 15:28:48 Past Encounters Encounter ID Performer Location Encounter Start Date Encounter Closed Date Diagnosis/Indication Diagnosis SNOMED-CT Code Diagnosis ICD10 Code Diagnosis IMO Codes Diagnosis Note [id number] DEEPAK Caballero [facility] on [address] [place] [address] 01/17/2024 11:44:31 01/19/2024 09:29:48 Closed fracture dislocation of tarsometatarsal joint 732656461 S92.901D see HPIPT/OT eval and treatoxyco done 5 mg q 6 hours PRNAPAP 1000 mg q 8 hours x 5 days then change to PRNmonitor pain control Bipolar disorder 6308605 4 F31.9 olanzapine 15 mg qhsdivalpr oex 500 mg dailymonit or moodconsul t psych if needed Insomnia 530015550 G47.0 0 trazodone 50 mg qhsmonitor mood Constipation 00743051 K5 9.00 colace 100 mg BIDmonitor bowels [id number] JUSTEN GIRON at [facility] on [address] [place] [address] 01/20/2024 09:08:33 01/24/2024 11:00:34 Closed fracture dislocation of tarsometatarsal joint 796650259 S92.901D see HPIpain very well controlled and progressin g well with therapyPT/ OT eval and treat and stair trainingma intain strict NWB to RLEdc oxycodone 5 mg q 6 hours PRNchange scheduled APAP to 650 mg prnneeds f/up with ortho [id number] Daniel Snow MD [facility] at [facility] on [address] [place] [address] 01/23/2024 15:34:41 01/25/2024 13:00:51 Fracture of ankle 20901930 S82.90XD s/p operative repair at [facility] RIGHT ankleLisfr anc dislocatio n, advanced arthritis, midfoot unstable fracture requiring fixation; s/p midfoot fusion tarsal metatarsal multiple joints 1st & 2nd right foot; open repair dislocatio n 3rd metatarsal right foot; Bipolar disorder 9168885 4 F31.9 seems euthymic; well adjusted; Medication monitoring 39 3265714 Z51.81 neuro / divalproex ; olanzapine ; trazodone; Screening for osteoporosis 508132910 Z13.820 she needs out patient evaluation and management of suspected osteoporos is;divalpr oate is a risk factore for osteoporos is;started vitamin d3 1000 u po qd [id number] JUSTEN GIRON at [facility] on [address] [place] [address] 01/24/2024 10:42:49 01/25/2024 15:14:02 Closed fracture dislocation of tarsometatarsal joint 864250735 S92.901D see HPIpain very well controlled and progressin g well with therapyPT/ OT eval and treatconti nue w/ stair training in therapymai ntain strict NWB to RLEno longer requiring narcsAPAP to 650 mg prnf/up with [facility] [id number] JUSTEN GIRON [facility] on [address] [place] [address] 01/25/2024 09:12:07 01/27/2024 15:22:52 Closed fracture dislocation of tarsometatarsal joint 696530878 S92.901D see HPINo paincomple evelyn PT OT for strength and mobility trainingma intain strict NWB to RLE using crutches to ambulateno longer requiring narcs , can use Tylenol 650 mg po q8h prnf/up with Ortho at [place] Bipolar disorder 7575480 4 F31.9 olanzapine 15 mg qhsdivalpr oex 500 mg dailyf/up with pcp Insomnia 745535122 G47.0 0 trazodone 50 mg qhsf/up with pcp Constipation 86934351 K5 9.00 colace 100 mg BIDmonitor bowels at home and f/up with pcp Health Concerns Section Related Observation LastModified by Organization Detai ls LastModified Time None Recorded Concern Status LastModified by Organization Details LastModified Time None Recorded Advance Directives Directive Y: Payers Insurance Date Sequence Insurance Name Policy Number Policy Herman Covered Member ID Herman Member ID Guarantor Name 01/23/2024 1 [facility] [id number] 1 Latasha Lucio [id number] Latasha Valdes Notes Date Note Type Note Provider Name and Address Organization Details Recorded Time 01/17/2024 text/html This is a 58 year old female seen today for initial intake visit. Patient to hospital for elective surgery for Lisfranc location with advanced arthritis in combination of midfoot unstable fracture. Procedures performed: midfoot fusion of tarsal metatarsal multiple joints of 1st and 2nd right toes and open repair dislocation of 3rd metatarsal dislocation of right foot. Pain controlled with oxy and APAP, splint to be left intact until follow up with podiatry. She is to remain strict NWB to right LE, here for short term rehab. PMH significant for bipolar disorder and insomnia DEEPAK KING [address] [facility] [address], [address], [place], [address], [facility] [employer] 01/17/2024 12:38:25 01/20/2024 text/html This is a 58 year old female seen today for acute rounding visit. Patient to hospital for elective surgery for Lisfranc location with advanced arthritis in combination of midfoot unstable fracture. Procedures performed: midfoot fusion of tarsal metatarsal multiple joints of 1st and 2nd right toes and open repair dislocation of 3rd metatarsal dislocation of right foot. Pain controlled with oxy and APAP, splint to be left intact until follow up with podiatry. She is to remain strict NWB to right LE, here for short term rehab. Patient is dping very well with therapy. Discussed with PT who feels she will likely dc home early next week. She needs a few more sessions practicing stairs as she is strict NWB to LE. She has no pain and has very sparingly used her oxycodone, she feels we can dc it. PMH significant for bipolar disorder and insomnia JUSTEN GIRON [address] [facility], [address], [place], [address], [email or web address] 01/20/2024 11:30:44 01/23/2024 text/html ROS as noted in the HPI transfer from [facility] after orthopedic surg on ankleLisfranc dislocation, advanced arthritis, midfoot unstable fracture requiring fixation; s/p midfoot fusion tarsal metatarsal multiple joints 1st & 2nd right foot; open repair dislocation 3rd metatarsal right foot;hx bipolar on meds including divalproex;COMMENT ///Valproic acid (Depakote) has been shown to be associated with osteoporosis and low bone density in some studies. For example, one clinical trial found that 16% of epileptic adults who took valproate for more than a year had osteoporosis, and 52% had osteopenia. Daniel Snow MD [address] [facility] [address] [facility], [address], [place], [address], [email or web address] 01/23/2024 16:31:30 01/24/2024 text/html This is a 58 year old female seen today for acute rounding visit. Patient to hospital for elective surgery for Lisfranc location with advanced arthritis in combination of midfoot unstable fracture. Procedures performed: midfoot fusion of tarsal metatarsal multiple joints of 1st and 2nd right toes and open repair dislocation of 3rd metatarsal dislocation of right foot. Pain controlled with oxy and APAP, splint to be left intact until follow up with podiatry. She is to remain strict NWB to right LE, here for short term rehab. patients doing very well. She is supposed to dc home tomorrow. ortho f/up has been arranged for with [facility]. SHe has no complaints and says she doesnt need any prescriptions. PMH significant for bipolar disorder and insomnia JUSTEN GIRON [address] [facility] [address], [place], [address], [facility] [employer] [facility] 01/24/2024 10:49:07 01/25/2024 text/html This is a 58 year old female seen today for discharge summary visit. Patient went to hospital for elective surgery for Lisfranc location with advanced arthritis in combination of midfoot unstable fracture. Procedures performed: midfoot fusion of tarsal metatarsal multiple joints of 1st and 2nd right toes and open repair dislocation of 3rd metatarsal dislocation of right foot. Pain controlled with oxy and APAP, splint to be left intact until follow up with podiatry. She is to remain strict NWB to right LE, here for short term rehab. Patient had an uneventful stay. She progressed well with therapy and is using crutches for stair mobility. She is planned for dc home today with ortho f/up scheduled for at [place]. She has no pain. She tells me she doesnt need any prescriptions sent with her. PMH significant for bipolar disorder and insomnia JUSTEN GIRON [address] [facility], [address], [place], [address], [facility] [employer] [facility] 01/25/2024 09:16:31 OBGyn Episode No OBEpisode recorded.
--- OUTSIDE RECORDS SUMMARY | 2025-04-09 16:20 | XMS_ITS ---
Author Organization [facility] on Care Team Providers Care Cosmetic Sales Assistant Name Role Phone Crista Adams Unavailable Unavailable Yamilex Bhakta Unavailable Unavailable Daniel Snow Unavailable Unavailable Abbe Cabrales Unavailable Unavailable Jono, Silvina Unavailable Unavailable Chandni Salinas Unavailable Unavailable Luana Carrillo Unavailable Unava ilable Claudia Rushing Unavailable Unavailable Allergies and adverse reactions Code CodeSystem Substance Reaction Severity StartDate Concern Status 723 RXNORM Amoxicillin Unknown 01/16/2024 active 7984 RXNORM Penicillin Unknown 01/16/2024 active Care Team Name Role Address Phone Organization Dates Abbe Cabrales [address], [place], [address], [place] (Office): : [facility] 01/16/2024 - 01/25/2024 Crista Adams [address] [place] [address], [address], [place] (Office): : : [facility] [place] [facility] 01/16/2024 - 01/25/2024 Yamilex Bhakta [address] [place] [address], [place], [address], [place] (Office): [facility] [place] [facility] 01/16/2024 - 01/25/2024 Daniel Snow [address] [place] [address], [place], [address], [place] (Office): [facility] [place] [facility] 01/16/2024 - 01/25/2024 Silvina De La Cruz [address] [place] [address], [address], [place] (Office): : [facility] [place] [facility] 01/16/2024 - 01/25/2024 Chandni Salinas [address], [address], [place] (Office): : [facility] [place] 01/16/2024 - 01/25/2024 Luana Carrillo [address] [place], [address], [place] (Office): [facility] [place] 01/16/2024 - 01/25/2024 Claudia Rushing [address] [place] [address] [address], [place], [address], [place] (Office): : [facility] [place] [facility] 01/16/2024 - 01/25/2024 Immunizations Immunization Status Vaccine Details Vaccine Code CodeSystem Date Notes SARS-COV-2 (COVID-19) completed SARS-COV-2 (COVID-19) vaccine, mRNA, spike protein, LNP, preservative free, 100 mcg/0.5mL dose or 50 mcg/0.25mL dose Mfg: Moderna Step 2 of Multi-step with next step required 207 CVX created date: 01/20/2024 administer ed date: 09/19/2020 Verified in MIIS. SARS-COV-2 (COVID-19) completed SARS-COV-2 (COVID-19) vaccine, mRNA, spike protein, LNP, preservative free, 100 mcg/0.5mL dose or 50 mcg/0.25mL dose Mfg: Moderna Step 1 of Multi-step with next step required 207 CVX created date: 01/20/2024 administer ed date: 08/22/2020 Verified in MIIS. SARS-COV-2 (COVID-19 BOOSTER) completed SARS-COV-2 (COVID-19) vaccine, mRNA, spike protein, LNP, preservative free, 100 mcg/0.5mL dose or 50 mcg/0.25mL dose Mfg: Moderna Booster # 1 207 CVX created date: 01/20/2024 administer ed date: 06/09/2021 Verified in MIIS. Mental Status Section Date Assessment Total Score Description 01/25/2024 BIMS 15 cognitively int act CAM 0 No delirium ind icated PHQ-9 00 Insurance Providers Problems Problem # Description Date of onset Resolved Date Code CodeSystem Concern Status 1 BIPOLAR DISORDER, UNSPECIFIED 01/16/[address] active 2 ENCOUNTER FOR ORTHOPEDIC AFTERCARE FOLLOWING SCOLIOSIS SURGERY 01/16/[address] active 3 OTHER INSOMNIA 01/16/[address] ac tive 4 SPRAIN OF TARSOMETATARSAL LIGAMENT OF LEFT FOOT, SUBSEQUENT ENCOUNTER 01/16/[address] active 5 UNSPECIFIED FRACTURE OF RIGHT FOOT, SUBSEQUENT ENCOUNTER FOR FRACTURE WITH ROUTINE HEALING 01/16/[address] active Reason for Referral No Reasons for Referral Entered Social History Social History Observation Description Start Date End Date Code Code System Current Smoking Status Tobacco smoking consumption unknown 203817126 SNOMED CT Sex Assigned At Female 1965 [address] [facility] Gender Identity Sexual Orientation Vital Signs Code Code System Vitals Name Values and Units Timing Information 9279-1 LOINC Respiratory Rate Value=17.0 Units=/m in 01/25/2024 8462-4 LOINC Blood Pressure-Diastolic Value=64 Un its=mmHg 01/25/2024 8480-6 LOINC Blood Pressure-Systolic Smlcg=948 Un its=mmHg 01/25/2024 8310-5 [facility] Body Temperature Value=97.1 Units= F 01/25/2024 8867-4 [facility] Heart rate Value=73.0 Units=/min 80943-5 LOINC O2 % BldC Oximetry Value=98.0 Units= % 01/25/2024 81791-5 LOINC Pain Level Value=0.0 01/25/2024 25008-4 LOINC Weight Iowde=797.0 Units=Lbs 8302-2 LOINC Height Value=69.0 Units=Inches 01/16/2024
--- OUTSIDE RECORDS SUMMARY | 2025-04-09 16:20 | XMS_ITS | Clinical Summary ---
Author Organization [facility] Address [address] [place] [id number] Phone Care Team Providers Care Booking Officer Name Role Phone Marquis Lopez MD Primary Care Provider [phone] Allergies Active Allergy Reactions Criticality Noted Date Comments Penicillins 03/06/2020 Medications acetaminophen (TYLENOL) 500 mg tablet Take 500 mg by mouth every 6 hours as needed. Active divalproex (DEPAKOTE) [address] tablet Take 500 mg by mouth Once. Active OLANZapine (ZyPREXA) 15 mg tablet Take 15 mg by mouth at bedtime. Active Active Problems Problem Noted Date Diagnosed Date Bipolar affective disorder ([facility] V24, [facility] V28) 03/08/2024 Surgical History Surgery Date Site/Laterality Comments OTHER SURGICAL HISTORY PROCEDURE: DENIES PREVIOUS SURGERY Medical History Medical History Date Comments Bipolar affective disorder ( [facility] V24, [facility] V28) DX:Bipolar affective disorde r ([facility]) Family History Medical History Relation Name Comments Breast cancer Mother's Sister Melanoma Neg Hx Relation Name Status Comments Mother's Sister Alive Social History Tobacco Use Types Packs/Day Years Used Date Smoking Tobacco: Every Day Smokeless Tobacco: Never Comments No Sex and Gender Information Value Date Recorded Sex Assigned at Female 05/08/2024 2:48 PM EST Legal Sex Female 10:43 AM EST Gender Identity Female 05/08/2024 2:48 PM EST Sexual Orientation Not on file Obstetrics History Para Term AB IAB SAB Ectopic Multiple Livin g Live Births 2 Last Filed Vital Signs Vital Sign Reading Time Taken Comments Blood Pressure - - Pulse - - Temperature - - Respiratory Rate - - Oxygen Saturation - - Inhaled Oxygen Concentration - - Weight 74.8 kg (165 lb) 05/17/2024 3:23 PM EST Height 175.3 cm (5' 9.02 ) 05/17/2024 3:23 PM ES T Body Mass Index 24.35 05/17/2024 3:23 PM EST Plan of Treatment Health Maintenance Due Date Last Done Comments Colorectal Cancer Screening: Colonoscopy 1964 Pneumococcal Vaccine: 50+ Years (1 of 2 - PCV) 1983 Cervical Cancer Screening: Pap Smear 1985 Zoster Vaccines (1 of 2) 2014 HIV Screening 05/11/2022 Hepatitis C Screening 05/11/2022 Social Influencers of Health Screening 05/11/2022 Depression Screening 06/07/2024 COVID-19 Vaccine ( season) 2025 06/09/2021, 09/19/2020, 08/22/2020 Influenza Vaccine (#1) 2025 Cholesterol Screening (Lipid Panel) 05/07/2025 05/07/2020 Breast Cancer Screening 05/15/2026 05/15/20 24, 02/22/2022, 02/08/2021, Additional history exists DTaP,Tdap,and Td Vaccines (2 - Td or Tdap) 04/19/2027 04/19/2017 Osteoporosis Screening (Bone Density Screening) 05/15/2034 05/15/2024 RSV Immunization Adult Patients (1 - 1-dose 75+ series) 2039 HIB Vaccines Aged Out No longer eligi ble based on patient's age to complete this topic HPV Vaccines Aged Out No longer eligi ble based on patient's age to complete this topic Hepatitis A Vaccines Aged Out No long er eligible based on patient's age to complete this topic Hepatitis B Vaccines Aged Out No long er eligible based on patient's age to complete this topic IPV Vaccines Aged Out No longer eligi ble based on patient's age to complete this topic MMR Vaccines Aged Out No longer eligi ble based on patient's age to complete this topic Meningococcal ACWY Vaccine Aged Out N o longer eligible based on patient's age to complete this topic Meningococcal B Vaccine Aged Out No l onger eligible based on patient's age to complete this topic RSV Immunization Patients Under 20 months Aged Out No longer eligible based on patient's age to complete this topic Varicella Vaccines Aged Out No longer eligible based on patient's age to complete this topic Procedures Procedure Name Priority Date/Time Associated Diagnosis Comments MG MAMMO DIGITAL SCREENING W HARLAN BILAT Routine 05/15/2024 8:17 AM EST Encounter for screening mammogram for breast cancer BD BONE DENSITY DXA AXIAL SKELETON Routine 05/15/2024 8:08 AM EST Osteoporosis screening LIPID PANEL Routine 05/07/2020 from Last 3 Months or Most Recently Relevant to Health Maintenance Results * MG Mammo Digital Screening w Harlan bilat (05/15/2024 8:17 AM EST) Anatomical Region Laterality Modality Breast Bilateral Mammography 05/15/2024 11:5 3 AM EST Impressions 05/15/2024 12:00 PM EST No mammographic evidence of malignancy. No suspicious interval change. A negative mammogram in the presence of a clinically suspicious palpable abnormality does not preclude the possibility of malignancy or alter the indications for biopsy. ASSESSMENT: BI-RADS 1: NEGATIVE RECOMMENDATION(S): 1: Routine screening mammogram BILATERAL in 1 year. -------- FINAL REPORT -------- Dictated By: Shlomo Chau Dictated Date: 05/15/2024 11:53 ET Assigned Physician: Shlomo Chau Reviewed and Electronically Signed By: Shlomo Chau Signed Date: 05/15/2024 12:00 ET Workstation ID: [id number] Transcribed By: Self Edit Transcribed Date: 05/15/2024 11:53 ET Narrative 05/15/2024 12:00 PM EST EXAM: SCREENING MAMMOGRAPHY, BILATERAL HISTORY: SCREENING. Family history of breast cancer, maternal aunt COMPARISON: 02/21/2022, 02/07/2021, 12/28/2019 TECHNIQUE: Synthesized CC and MLO projections of each breast. Tomosynthesis of each breast in the CC and MLO projections. 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 AI 3-D. TISSUE DENSITY: The breasts are almost entirely fatty. (BI-RADS Category A) FINDINGS: RIGHT BREAST: No suspicious mass. No suspicious calcification. No distortion. No additional suspicious right breast findings LEFT BREAST: No suspicious mass. No suspicious calcification. No distortion. No additional suspicious left breast findings Procedure Note Shlomo Chau MD - 05/15/2024 EXAM: SCREENING MAMMOGRAPHY, BILATERAL HISTORY: SCREENING. Family history of breast cancer, maternal aunt COMPARISON: 02/21/2022, 02/07/2021, 12/28/2019 TECHNIQUE: Synthesized CC and MLO projections of each breast.Tomosynthesis of each breast in the CC and MLO projections. ADDITIONAL IMAGING: None Computer-aided detection was employed with the [employer] 3-D. TISSUE DENSITY: The breasts are almost entirely fatty. (BI-RADS CategoryA) FINDINGS: RIGHT BREAST: No suspicious mass. No suspicious calcification. No distortion. Noadditional suspicious right breast findings LEFT BREAST: No suspicious mass. No suspicious calcification. No distortion. Noadditional suspicious left breast findings IMPRESSION: No mammographic evidence of malignancy. No suspicious interval change. A negative mammogram in the presence of a clinically suspicious palpableabnormality does not preclude the possibility of malignancy or alter theindications for biopsy. ASSESSMENT: BI-RADS 1: NEGATIVE RECOMMENDATION(S): 1: Routine screening mammogram BILATERAL in 1 year. -------- FINAL REPORT -------- Dictated By: Shlomo Chau Dictated Date: 05/15/2024 11:53 ET Assigned Physician: Shlomo Chau Reviewed and Electronically Signed By: Shlomo Chau Signed Date: 05/15/2024 12:00 ET Workstation ID: [id number] Transcribed By: Self Edit Transcribed Date: 05/15/2024 11:53 ET us Self Referral Sppl IMG BI PROCEDURES Final Resul t * BD Bone Density DXA Axial Skeleton (05/15/2024 8:08 AM EST) Anatomical Region Laterality Modality Wrist, Hip, L-spine Bone Densito metry 05/17/2024 8:36 AM EST Impressions 05/17/2024 8:37 AM EST 1. There is no evidence of osteoporosis or osteopenia. 2. FRAX analysis yields a 10-year probability of major osteoporotic fracture of 20.5% and a 10-year probability of hip fracture of 0.7%. Code 92205 -------- FINAL REPORT -------- Dictated By: Attila Trevino Dictated Date: 05/17/2024 08:36 ET Assigned Physician: Attila Trevino Reviewed and Electronically Signed By: Attila Trevino Signed Date: 05/17/2024 08:37 ET Workstation ID: [id number] Transcribed By: Self Edit Transcribed Date: 05/17/2024 08:36 ET Narrative 05/17/2024 8:37 AM EST HISTORY: The patient is a 59-year-old postmenopausal female with clinical concern for metabolic bone disease. FINDINGS: Dual energy x-ray absorptiometry of the lumbar spine and femurs is performed. The mean bone mineral density at L1-L4 is 1.229 gm/cm2 which is 104% of that of young normals and 116% of that of age matched controls. This yields a T-score of 0.4 and a Z-score of 1.4 and there is therefore no evidence of osteoporosis or osteopenia here. The mean bone mineral density of the femurs bilaterally is 0.967 gm/cm2 which is 96% of that of young normals and 106% of that of age matched controls. This yields a T-score of -0.3 and a Z-score of 0.5 and there is therefore no evidence of osteoporosis or osteopenia here. Procedure Note Attila Trevino MD - 05/17/2024 HISTORY: The patient is a 59-year-old postmenopausal female with clinicalconcern for metabolic bone disease. FINDINGS: Dual energy x-ray absorptiometry of the lumbar spine and femursis performed. The mean bone mineral density at L1-L4 is 1.229 gm/cm2 whichis 104% of that of young normals and 116% of that of age matched controls.This yields a T- score of 0.4 and a Z-score of 1.4 and there is thereforeno evidence of osteoporosis or osteopenia here. The mean bone mineral density of the femurs bilaterally is 0.967 gm/ww1rhgrr is 96% of that of young normals and 106% of that of age matchedcontrols. This yields a T-score of -0.3 and a Z-score of 0.5 and there istherefore no evidence of osteoporosis or osteopenia here. IMPRESSION: 1. There is no evidence of osteoporosis or osteopenia. 2. FRAX analysis yields a 10-year probability of major osteoporoticfracture of 20.5% and a 10-year probability of hip fracture of 0.7%. Code 48956 -------- FINAL REPORT -------- Dictated By: Attila Trevino Dictated Date: 05/17/2024 08:36 ET Assigned Physician: Attila Trevino Reviewed and Electronically Signed By: Attila Trevino Signed Date: 05/17/2024 08:37 ET Workstation ID: [id number] Transcribed By: Self Edit Transcribed Date: 05/17/2024 08:36 ET Marquis Lopez MD IMG DXA PROCEDURES Final Res ult * Lipid panel (05/07/2020) Triglycerides 103 0 - 150 mg/dL Blood Venous blood specimen / Unknown Historical Provider LAB BLOOD ORDERABLES Marylin l Result from Last 3 Months or Most Recently Relevant to Health Maintenance [facility] Advance Directives Documents on File Type Date Recorded Patient Vice President And Portfolio Manager Expl anation Health Care Decision (hx) 01/18/2024 AD HICKMAN DIRECTIVE Care Teams Booking Officer Relationship Specialty Start Date End Date Marquis Lopez MD [address] [place] [address] PCP - General Internal Medicine 12/22/13
--- OUTSIDE RECORDS SUMMARY | 2025-04-09 16:20 | XMS_ITS | Clinical Summary ---
Author Organization [facility] Address [address] [place] [address] Phone Care Team Providers Care Physically Impaired Teacher Name Role Phone Abbe Cabrales MD Primary Care Provider [phone] Social History Tobacco Use Types Packs/Day Years Used Date Smoking Tobacco: Never Assessed Education Answer Date Recorded Are you interested in more education? Not on davion e 01/17/2024 Are you concerned about learning? Not on file 01/17/2024 No 01/17/2024 No 01/17/2024 Digital Access Answer Date Recorded No 01/17/2024 No 01/17/2024 Reliable internet access at home? Not on file 01/17/2024 Device with a working camera? Not on file Comments Unknown Sex and Gender Information Value Date Recorded Sex Assigned at Not on file Legal Sex Female 11:33 AM EDT Gender Identity Not on file Sexual Orientation Not on file Plan of Treatment Not on file Medical Devices Not on file Insurance HMO [facility] HMO Care Teams Physically Impaired Teacher Relationship Specialty Start Date End Date Abbe Cabrales MD [email or web address] PCP - General Family Medicine 01/17/24 Additional Source Comments The information contained in this document represents components of the legal health record. It is not the complete legal health record.[facility]
== END 2025-04-09 15:34 | disposition home or self-care (01) ==
LOC: HO.HPS 14:53
PROVIDERS: PCP Internal Medicine; Referring Provider Internal Medicine; Visit Provider Hospitalist
DX: F17.200 Nicotine dependence, unspecified, uncomplicated (principal); J21.9 Acute bronchiolitis, unspecified; J41.1 Mucopurulent chronic bronchitis; R91.8 Other nonspecific abnormal finding of lung field
CPT/HCPCS: 99204